=== PATIENT | male | born 1950 | race Caucasian/White ===

== ENCOUNTER → 2016-04-11 | Outpatient (REF) | payer MEDICARE ==
[2016-04-13 14:16] LABS: Lyme Disease IgG/IgM Antibodie <0.91 ISR (0.00-0.90); Lyme Disease IgM Ab Quantitati <0.80 index (0.00-0.79)
== END | disposition home or self-care (01) ==
LOC: M LAB REF 13:04
PROVIDERS: ATTEND Nurse Practitioner Family
DX: H53.143 Visual discomfort, bilateral (principal); W57.XXXS Bitten or stung by nonvenomous insect and other nonvenomous arthropods, sequela; Y92.9 Unspecified place or not applicable; Y93.9 Activity, unspecified; Y99.9 Unspecified external cause status

== ENCOUNTER → 2016-07-23 | Outpatient (CLI) | payer MEDICARE ==
[2016-07-23 16:16] LABS: MEAN CORPUSCULAR HEMOGLOBIN 33.8 pg (27.0-33.0); MEAN CORPUSCULAR HGB CONC 33.7 g/dl (32.0-36.5); MEAN CORPUSCULAR VOLUME 100.4 fl (80.0-96.0); PLATELET COUNT, AUTOMATED 205 k/mm3 (150-450); RED CELL DISTRIBUTION WIDTH 12.5 % (11.5-14.5); WHITE BLOOD COUNT 2.9 K/mm3 (4.0-10.0)
[2016-07-23 16:48] LABS: ALBUMIN 3.9 GM/DL (3.2-5.2); ALBUMIN/GLOBULIN RATIO 1.08 (1.00-1.93); ALKALINE PHOSPHATASE 82 U/L (45-117); ALT/SGPT 29 U/L (12-78); ANION GAP 4 MEQ/L (8-16); AST/SGOT 25 U/L (15-37); BILIRUBIN,TOTAL 0.5 MG/DL (0.2-1.0); BLOOD UREA NITROGEN 13 MG/DL (7-18); CALCIUM LEVEL 8.6 MG/DL (8.8-10.2); CARBON DIOXIDE LEVEL 30 MEQ/L (21-32); CHLORIDE LEVEL 107 MEQ/L (98-107); CREATININE FOR GFR 0.98 MG/DL (0.70-1.30); GLOMERULAR FILTRATION RATE > 60.0 (>49); GLUCOSE, FASTING 99 MG/DL (80-110); POTASSIUM SERUM 4.4 MEQ/L (3.5-5.1); SODIUM LEVEL 141 MEQ/L (136-145); TOTAL PROTEIN 7.5 GM/DL (6.4-8.2)
[2016-07-23 17:53] LABS: BANDS 1 % (< 11); EOSINOPHILS 2 % (0-5)
[2016-07-27 00:07] LABS: FREE KAPPA LIGHT CHAINS SERUM 166.81 mg/L (3.30-19.40); FREE LAMBDA LIGHT CHAINS SERUM 3.7 mg/L (5.71-26.30); KAPPA/LAMBDA RATIO SERUM 45.08 (0.26-1.65)
[2016-07-27 10:53] LABS: ALBUMIN 4.53 GM/DL (3.29-5.55); ALBUMIN % 60.4 % (55.8-66.1); GAMMA GLOBULIN % 19.2 % (11.1-18.8)
== END ==
LOC: M LAB 15:25
PROVIDERS: ATTEND Physician Assistant
DX: D47.2 Monoclonal gammopathy (principal)

== ENCOUNTER 2016-11-26 11:12 | Emergency (ER) | payer MEDICARE ==
[~2016-11-26] VITALS: Ht 180.3 cm; Wt 77.0 kg
[2016-11-26 14:29] LABS: BASO % 0.5 % (0.0-1.0); EOS % 1.1 % (0.0-3.0); LARGE UNSTAINED CELL # 0.1 K/mm3 (0.0-0.4); LARGE UNSTAINED CELL % 1.9 % (0.0-4.0); LYMPH # 0.9 K/mm3 (1.5-4.5); LYMPH % 22.4 % (24.0-44.0); MEAN CORPUSCULAR HEMOGLOBIN 34.1 pg (27.0-33.0); MEAN CORPUSCULAR HGB CONC 34.3 g/dl (32.0-36.5); MEAN CORPUSCULAR VOLUME 99.2 fl (80.0-96.0); MONO # 0.2 K/mm3 (0.0-0.8); MONO % 5.1 % (0.0-5.0); NEUTROPHILS # 2.6 K/mm3 (1.8-7.7); NEUTROPHILS % 68.9 % (36.0-66.0); PLATELET COUNT, AUTOMATED 221 k/mm3 (150-450); RED CELL DISTRIBUTION WIDTH 12.6 % (11.5-14.5); WHITE BLOOD COUNT 3.7 K/mm3 (4.0-10.0)
[2016-11-26 14:56] LABS: ALBUMIN 4.4 GM/DL (3.2-5.2); ALKALINE PHOSPHATASE 91 U/L (45-117); ALT/SGPT 26 U/L (12-78); ANION GAP 6 MEQ/L (8-16); AST/SGOT 20 U/L (15-37); BILIRUBIN,TOTAL 0.5 MG/DL (0.2-1.0); BLOOD UREA NITROGEN 16 MG/DL (7-18); CARBON DIOXIDE LEVEL 30 MEQ/L (21-32); CHLORIDE LEVEL 104 MEQ/L (98-107); CREATININE FOR GFR 1.04 MG/DL (0.70-1.30); GLOMERULAR FILTRATION RATE > 60.0 (>49); GLUCOSE, FASTING 108 MG/DL (80-110); POTASSIUM SERUM 4.1 MEQ/L (3.5-5.1); SODIUM LEVEL 140 MEQ/L (136-145); TOTAL PROTEIN 8.4 GM/DL (6.4-8.2)
[2016-11-26] MEDS ORDERED: ISOVUE-370 76% 100ML VIAL (Q9967) As Ordered ONE (15:01)
--- NOTE | 2016-11-26 15:30 | REP ---
Clinical: Abdominal pain with history of umbilical hernia. Technique: Axial contrast enhanced images from the lung bases to the pubic symphysis using 100 ml Isovue 370 intravenous contrast material with coronal and sagittal re-formations. Comparison: 10/20/2013. Findings: Lung bases demonstrate mild emphysematous changes. Visualized heart and pericardium are normal. Liver demonstrates stable subcentimeter hepatic cysts. Spleen, pancreas, gallbladder, bilateral adrenal glands and kidneys are normal. The enteric system is without obstruction or acute inflammatory process. Normal terminal ileum and appendix are identified in the right lower quadrant. Scattered colonic diverticula noted without acute diverticulitis. Moderate fecal stasis and constipation suggested. Pelvis demonstrates normal bladder and mildly prominent prostate gland measuring 4.5 cm maximal transverse diameter. 2 cm fat containing periumbilical hernia noted with mild fat stranding. No ascites. No free air. No intraperitoneal or retroperitoneal adenopathy. Abdominal aorta and vasculature without aneurysm or dissection. Surrounding musculoskeletal structures demonstrate age-related changes without focal osseous abnormality. Impression: 1. 2 cm fat containing periumbilical hernia with mild stranding should be correlated with physical examination. 2. Scattered diverticula without acute diverticulitis. 3. Few subcentimeter hepatic cysts. 4. Prominent prostate gland. 5. No further acute abdominopelvic pathology appreciated. Signed by Damien Goldberg MD 11/26/2016 03:22 P
[2016-11-26] MEDS ORDERED: STOO100C PO (15:54)
[2016-11-26] MEDS ORDERED: TYLE325T5 PO (15:56)
[2016-11-26] MEDS ORDERED: NAPR500T3 PO (15:56)
[2016-11-26 16:16] VITALS: BP 124/73
[2017-01-09] MEDS ORDERED: META48.54 PO (09:21)
[2017-01-09] MEDS ORDERED: CENTTAB PO (09:21)
[2017-01-09] MEDS ORDERED: TUMS500C PO (09:22)
== END 2016-11-26 16:17 | disposition home or self-care (01) ==
LOC: M ED 11:12
DX: K42.9 Umbilical hernia without obstruction or gangrene (principal); Z88.0 Allergy status to penicillin
CPT/HCPCS: 36415; 74177; 80053; 81001; 83690; 85025; 99283; Q9967

== ENCOUNTER 2017-01-18 05:43 | Day surgery (SDC) | payer MEDICARE ==
[~2017-01-18] VITALS: Ht 180.3 cm; Wt 75.7 kg
[~2017-01-18 05:43] MED LIST: CENTTAB PO; META48.54 PO; NAPR500T3 PO; STOO100C PO; TUMS500C PO; TYLE325T5 PO
[2017-01-18] MEDS ORDERED: LR 1,000 ML IV SCH ×2 (06:00→09:15)
[2017-01-18] MEDS ORDERED: LIDOCAINE 1% MDV 20ML VIAL SQ PRN (06:00)
[2017-01-18] MEDS ORDERED: dexameTHASONE 4 MG/ML 1ML VIAL (J1100) As Ordered ONE (07:18)
[2017-01-18] MEDS ORDERED: SUCCINYLCHOLINE 100 MG/5 ML SYRINGE (J0330) As Ordered ONE (07:18)
[2017-01-18] MEDS ORDERED: GLYCOPYRROLATE INJ 0.2 MG/ML 2 ML VIAL As Ordered ONE (07:18)
[2017-01-18] MEDS ORDERED: ROCURONIUM BROMIDE 50 MG/5 ML VIAL/SYRINGE As Ordered ONE (07:18)
[2017-01-18] MEDS ORDERED: ONDANSETRON 4MG/2ML VIAL (J2405) As Ordered ONE (07:18)
[2017-01-18] MEDS ORDERED: LIDOCAINE 2% INJ 100 MG/5 ML SDV (FOR ANES.) As Ordered ONE (07:18)
[2017-01-18] MEDS ORDERED: PROPOFOL 200 MG/20 ML VIAL As Ordered ONE (07:18)
[2017-01-18] MEDS ORDERED: NEOSTIGMINE 10 MG/10 ML VIAL (J2710) As Ordered ONE (07:18)
[2017-01-18] MEDS ORDERED: fentaNYL 100 MCG/2 ML INJECTION (J3010) As Ordered ONE (07:19)
[2017-01-18] MEDS ORDERED: BUPIVACAINE HCL 0.25% 30 ML VIAL As Ordered ONE (07:19)
[2017-01-18] MEDS ORDERED: MIDAZOLAM INJ 2 MG/2 ML VIAL (J2250) As Ordered ONE (07:19)
[2017-01-18] MEDS ORDERED: ePHEDrine SULFATE 25 MG/5 ML(5MG/ML) SYRINGE As Ordered ONE (07:45)
[2017-01-18] MEDS ORDERED: NORCO, ANEXSIA 5/325MG TABLET (HYDROcodone/ACETAMINOPHEN) PO PRN (09:15)
[2017-01-18] MEDS ORDERED: ACETAMINOPHEN TAB 650MG DOSE (2X325MG) PO PRN (09:15)
[2017-01-18] MEDS ORDERED: fentaNYL 100 MCG/2 ML INJECTION (J3010) IV PRN (09:15)
[2017-01-18] MEDS ORDERED: ONDANSETRON 4MG/2ML VIAL (J2405) IV PRN (09:15)
[2017-01-18 10:25] VITALS: BP 125/76
--- NOTE | 2017-01-21 19:59 | RO ---
DATE OF PROCEDURE: 01/18/2017 PREOPERATIVE DIAGNOSIS: Umbilical hernia. POSTOPERATIVE DIAGNOSIS: Umbilical hernia. PROCEDURE PERFORMED: Umbilical herniorrhaphy. SURGEON: Stef Ortiz MD ANESTHESIA: General. INDICATIONS FOR PROCEDURE: Patient is 66-year-old man who has noticed small bulge at the umbilicus. He is now for repair. OPERATIVE PROCEDURE: The patient was placed under general endotracheal anesthesia. The patient's abdomen was prepped and draped in a sterile fashion. An approximately 3-4 cm curved infraumbilical transverse incision was made. This was deepened into the subcutaneous tissues. The umbilical skin was elevated and elevated off of the umbilical hernia sac. The sac was then opened and transected at the skin. The hernia sac contained only a small amount of fat. This was freed where it was adherent in several small areas and then reduced into the abdomen. The hernia sac was excised at the level of the fascia. The fascia overall appeared to be somewhat thinned, but intact. The edges of the fascia were trimmed slightly where it was stretched at the edges of the hernia. The hernia appeared amenable to a primary closure. This was performed with interrupted simple sutures of #2-0 Ethibond closing the defect transversely. The umbilical skin was tacked down to the underlying fascia with a single #2-0 Ethibond. Hemostasis was ensured with electrocautery. Approximately 15 mL of 0.25% Marcaine were infiltrated about the wound. The subcutaneous tissues were closed with #3-0 Vicryl and skin edges with a running subcuticular #4-0 Vicryl. Steri-Strips and a light dressing were applied. The patient tolerated the procedure well without apparent complication. He was awakened in the operating room, extubated and moved to the recovery room in stable condition. YUNI
== END 2017-01-18 12:10 | disposition home or self-care (01) ==
LOC: M SDC 05:43
PROVIDERS: ATTEND Surgery
DX: K42.9 Umbilical hernia without obstruction or gangrene (principal); K21.9 Gastro-esophageal reflux disease without esophagitis; K58.9 Irritable bowel syndrome, unspecified; Z88.0 Allergy status to penicillin; Z87.891 Personal history of nicotine dependence; Z86.2 Personal history of diseases of the blood and blood-forming organs and certain disorders involving the immune mechanism
CPT/HCPCS: 49585; 88302; J1100; J2250; J2405; J2710; J3010

== ENCOUNTER → 2017-05-28 | Outpatient (CLI) | payer MEDICARE ==
[2017-05-28 18:34] LABS: FREE T4 0.76 NG/DL (0.76-1.46)
== END ==
LOC: M LAB 17:13
DX: E07.9 Disorder of thyroid, unspecified (principal)
CPT/HCPCS: 84443

== ENCOUNTER → 2017-09-05 | Outpatient (REF) | payer MEDICARE | LOC: M LAB REF 11:48 | DX: L72.0 Epidermal cyst (principal) | CPT/HCPCS: 88304 ==

== ENCOUNTER → 2017-10-11 | Outpatient (CLI) | payer MEDICARE ==
[2017-10-11 12:03] LABS: BASO % 0.6 % (0.0-1.0); EOS % 1.1 % (0.0-3.0); HEMATOCRIT 36.1 % (42.0-52.0); HEMOGLOBIN 12.3 g/dl (13.5-17.5); LYMPH # 1.1 10^3/uL (1.5-4.5); LYMPH % 29.2 % (24.0-44.0); MEAN CORPUSCULAR HEMOGLOBIN 33.7 pg (27.0-33.0); MEAN CORPUSCULAR HGB CONC 34.1 g/dl (32.0-36.5); MEAN CORPUSCULAR VOLUME 98.9 fl (80.0-96.0); MONO # 0.3 10^3/uL (0.0-0.8); MONO % 9.1 % (0.0-5.0); NEUTROPHILS # 2.2 10^3/uL (1.8-7.7); PLATELET COUNT, AUTOMATED 214 10^3/uL (150-450); RED BLOOD COUNT 3.65 10^6/uL (4.30-6.10); RED CELL DISTRIBUTION WIDTH 12.4 % (11.5-14.5); WHITE BLOOD COUNT 3.6 10^3/uL (4.0-10.0)
[2017-10-11 13:13] LABS: ALBUMIN 4.2 GM/DL (3.2-5.2); ALBUMIN/GLOBULIN RATIO 1.14 (1.00-1.93); ALKALINE PHOSPHATASE 86 U/L (45-117); ALT/SGPT 31 U/L (12-78); ANION GAP 5 MEQ/L (8-16); AST/SGOT 24 U/L (7-37); BILIRUBIN,TOTAL 0.5 MG/DL (0.2-1.0); BLOOD UREA NITROGEN 16 MG/DL (7-18); CARBON DIOXIDE LEVEL 28 MEQ/L (21-32); CHLORIDE LEVEL 107 MEQ/L (98-107); CREATININE FOR GFR 1.03 MG/DL (0.70-1.30); GLOMERULAR FILTRATION RATE > 60.0 (>49); GLUCOSE, FASTING 105 MG/DL (70-100); POTASSIUM SERUM 4.2 MEQ/L (3.5-5.1); SODIUM LEVEL 140 MEQ/L (136-145); TOTAL PROTEIN 7.9 GM/DL (6.4-8.2)
[2017-10-12 08:14] LABS: IMMUNOGLOBULIN G 1772 MG/DL (681-1648)
[2017-10-12 08:16] LABS: IMMUNOGLOBULIN M < 5.3 MG/DL (40-230)
[2017-10-13 00:06] LABS: FREE KAPPA LIGHT CHAINS SERUM 145.7 mg/L (3.3-19.4); FREE LAMBDA LIGHT CHAINS SERUM 3.2 mg/L (5.7-26.3); KAPPA/LAMBDA RATIO SERUM 45.53 (0.26-1.65)
[2017-10-15 11:58] LABS: ALBUMIN % 59.5 % (55.8-66.1); ALPHA-1-GLOBULIN % 3.4 % (2.9-4.9); ALPHA-2-GLOBULINS % 8.7 % (7.1-11.8); BETA-1-GLOBULINS % 5.7 % (4.7-7.2); BETA-2-GLOBULINS % 2.7 % (3.2-6.5)
[2017-10-15 11:59] LABS: ALPHA-1-GLOBULINS 0.27 GM/DL (0.17-0.41); ALPHA-2-GLOBULINS 0.69 GM/DL (0.42-0.99); BETA-1-GLOBULINS 0.45 GM/DL (0.28-0.60); BETA-2-GLOBULINS 0.21 GM/DL (0.19-0.55); GAMMA GLOBULINS 1.58 GM/DL (0.65-1.58)
[2017-10-15 14:44] LABS: IMMUNOTYPING SERUM IGG ABNORMAL (NORMAL); IMMUNOTYPING SERUM KAPPA ABNORMAL (NORMAL)
== END ==
LOC: M LAB 11:12
DX: D47.2 Monoclonal gammopathy (principal)
CPT/HCPCS: 84165

== ENCOUNTER → 2018-04-03 | Outpatient (REF) | payer MEDICARE ==
[~2018-04-03] MED LIST changes: +IBUP80TA PO; +LEVO25TA5 PO; +NAPR-885 PO; -NAPR500T3 PO
== END ==
LOC: M LAB REF 16:36
PROVIDERS: ATTEND Internal Medicine
DX: L03.90 Cellulitis, unspecified (principal)

== ENCOUNTER 2018-04-06 01:25 | Emergency (ER) | payer MEDICARE ==
[~2018-04-06] VITALS: Ht 180.3 cm; Wt 77.3 kg
[~2018-04-06 01:25] MED LIST changes: -IBUP80TA PO; -LEVO25TA5 PO
[2018-04-06] MEDS ORDERED: LEVO25TA5 PO (02:16)
[2018-04-06 03:06] LABS: BASO % 0.7 % (0.0-1.0); EOS # 0.1 10^3/uL (0.0-0.50); EOS % 2.2 % (0.0-3.0); HEMATOCRIT 35.7 % (42.0-52.0); LYMPH # 1.1 10^3/uL (1.5-4.5); LYMPH % 25.1 % (24.0-44.0); MEAN CORPUSCULAR HEMOGLOBIN 34.2 pg (27.0-33.0); MEAN CORPUSCULAR HGB CONC 33.6 g/dl (32.0-36.5); MEAN CORPUSCULAR VOLUME 101.7 fl (80.0-96.0); MONO # 0.5 10^3/uL (0.0-0.8); NEUTROPHILS # 2.8 10^3/uL (1.8-7.7); NEUTROPHILS % 60.8 % (36.0-66.0); PLATELET COUNT, AUTOMATED 224 10^3/uL (150-450); RED BLOOD COUNT 3.51 10^6/uL (4.30-6.10); WHITE BLOOD COUNT 4.6 10^3/uL (4.0-10.0)
[2018-04-06] MEDS ORDERED: IBUP80TA PO (04:03)
[2018-04-06] MEDS ORDERED: IBUPROFEN 800 MG TAB PO ONE (04:15)
[2018-04-06 04:20] VITALS: BP 113/62
--- NOTE | 2018-04-06 08:28 | REP ---
Right ankle: Four views. History: Pain and swelling. Findings: Achilles and plantar calcaneal spurring is seen. There is diffuse anterior and posterior soft tissue swelling about the ankle. There is swelling in the pre-Achilles fat although the anterior margin of the Achilles tendon appears intact and normal. Ankle mortise is intact. No fractures seen. Impression: Diffuse soft tissue swelling. No fracture noted. Electronically Signed by Miguelito Ruano MD 04/06/2018 08:19 A
== END 2018-04-06 04:23 | disposition home or self-care (01) ==
LOC: M ED 01:25
DX: I80.9 Phlebitis and thrombophlebitis of unspecified site (principal); Z79.899 Other long term (current) drug therapy; Z79.890 Hormone replacement therapy; Z88.0 Allergy status to penicillin

== ENCOUNTER → 2018-05-21 | Outpatient (REF) | payer MEDICARE ==
[~2018-05-21] MED LIST changes: +IBUP80TA PO; +LEVO25TA5 PO
== END ==
LOC: M LAB REF 12:38
PROVIDERS: ATTEND Internal Medicine
DX: R30.0 Dysuria (principal)

== ENCOUNTER 2018-11-22 16:49 | Emergency (ER) | payer MEDICARE ==
[~2018-11-22] VITALS: Ht 177.8 cm; Wt 77.3 kg
[~2018-11-22 16:49] MED LIST changes: +MM S100C PO; -STOO100C PO
--- NOTE | 2018-11-22 18:22 | REPVR ---
EXAM: US Duplex Left Lower Extremity Veins, Limited EXAM DATE/TIME: 11/22/2018 5:34 PM CLINICAL HISTORY: 68 years old, male; Pain; Leg, lower; Left; Additional info: Redness/swelling/pain TECHNIQUE: Imaging protocol: Real-time Duplex ultrasound of the Left Lower Extremity with 2-D rene scale, color Doppler flow and spectral waveform analysis with image documentation. Limited exam focused on the left lower extremity veins. COMPARISON: US Duplex, Ext,LOWER veins,unilat 05/20/2014 8:29 PM FINDINGS: Left deep veins: Unremarkable. The common femoral, femoral, proximal profunda femoral and popliteal veins are patent without thrombus. Normal Doppler waveforms. Normal compressibility and/or augmentation response. Left superficial veins: The left lesser saphenous vein demonstrates abnormal intraluminal echoes with apparent absence of flow with color Doppler interrogation, probable trace flow based on spectral Doppler. This may reflect a superficial thrombophlebitis given the clinical history. Soft tissues: Unremarkable. IMPRESSION: 1. No evidence of deep venous thrombosis in the left lower extremity. 2. The left lesser saphenous vein demonstrates nearly occlusive thrombus. Electronically signed by: Bernice Knox On 11/22/2018 18:22:08 PM
[2018-11-22] MEDS ORDERED: XARE10TA PO (19:25)
[2018-11-22] MEDS ORDERED: RIVAROXABAN 10 MG TAB (XARELTO) PO ONE (19:30)
[2018-11-22 19:48] VITALS: BP 130/66
== END 2018-11-22 20:24 | disposition home or self-care (01) ==
LOC: M ED 16:49
DX: I82.890 Acute embolism and thrombosis of other specified veins (principal); Z86.718 Personal history of other venous thrombosis and embolism; Z88.0 Allergy status to penicillin; Z88.2 Allergy status to sulfonamides; Z79.01 Long term (current) use of anticoagulants

== ENCOUNTER → 2018-12-11 | Outpatient (CLI) | payer MEDICARE ==
[~2018-12-11] MED LIST changes: +XARE10TA PO
--- NOTE | 2018-12-11 16:26 | REP ---
BILATERAL LOWER EXTREMITY DUPLEX DOPPLER VENOUS ULTRASOUND WITH EVALUATION FOR VENOUS REFLUX: Real-time compression and duplex Doppler interrogation of bilateral lower extremity deep venous systems is performed. Bilaterally, common femoral, superficial femoral and popliteal veins are fully compressible with transducer pressure and demonstrate normal spontaneous and phasic flow without evidence of deep venous thrombosis. Evaluation for venous reflux in the right lower extremity demonstrates no reflux in any of the deep veins. There is an anterior accessory greater saphenous vein which measures 4 mm. There is no reflux in the greater saphenous vein at the knee or above, that vessel 3 to 4 mm in diameter. However, there is reversal of flow in the greater saphenous vein below the level of the knee at rest and with Valsalva maneuver with flow from a collateral vessel in the calf. There is no reflux in the lesser saphenous vein. On the left, there is no reflux in any of the deep veins. There is a 4 mm anterior accessory greater saphenous vein. There is no reflux in any portion of the greater saphenous vein which measures 2 to 4 mm. Occlusive thrombus is seen in the lesser saphenous vein. Electronically Signed by Darrick Clifton MD 12/11/2018 05:54 P
== END ==
LOC: M RAD 12:35
PROVIDERS: ATTEND Surgery Vascular Surgery
DX: M79.605 Pain in left leg (principal); M79.604 Pain in right leg; I82.812 Embolism and thrombosis of superficial veins of left lower extremity

== ENCOUNTER → 2019-05-21 | Outpatient (CLI) | payer MEDICARE ==
[2019-05-21 14:55] LABS: BASO % 0.3 % (0.0-1.0); EOS % 0.8 % (0.0-3.0); HEMATOCRIT 37.5 % (42.0-52.0); HEMOGLOBIN 12.6 g/dl (13.5-17.5); LYMPH # 0.7 10^3/uL (1.5-5.0); LYMPH % 20.6 % (24.0-44.0); MEAN CORPUSCULAR HEMOGLOBIN 34.7 pg (27.0-33.0); MEAN CORPUSCULAR HGB CONC 33.6 g/dl (32.0-36.5); MEAN CORPUSCULAR VOLUME 103.3 fl (80.0-96.0); MONO # 0.2 10^3/uL (0.0-0.8); MONO % 6.8 % (0.0-5.0); NEUTROPHILS # 2.5 10^3/uL (1.5-8.5); NEUTROPHILS % 71.2 % (36.0-66.0); PLATELET COUNT, AUTOMATED 207 10^3/uL (150-450); RED BLOOD COUNT 3.63 10^6/uL (4.30-6.10); WHITE BLOOD COUNT 3.5 10^3/uL (4.0-10.0)
[2019-05-21 19:08] LABS: ALBUMIN 4.1 GM/DL (3.2-5.2); ALT/SGPT 30 U/L (12-78); BILIRUBIN,TOTAL 0.5 MG/DL (0.2-1.0); BLOOD UREA NITROGEN 16 MG/DL (7-18); CALCIUM LEVEL 8.9 MG/DL (8.8-10.2); CARBON DIOXIDE LEVEL 31 MEQ/L (21-32); CHLORIDE LEVEL 109 MEQ/L (98-107); CREATININE FOR GFR 1.02 MG/DL (0.70-1.30); GLOMERULAR FILTRATION RATE > 60.0 (>42); GLUCOSE, FASTING 101 MG/DL (70-100); IMMUNOGLOBULIN G 1900 MG/DL (681-1648); POTASSIUM SERUM 4.2 MEQ/L (3.5-5.1); SODIUM LEVEL 141 MEQ/L (136-145); TOTAL PROTEIN 7.7 GM/DL (6.4-8.2)
== END ==
LOC: M LAB 14:10
PROVIDERS: ATTEND Physician Assistant
DX: D47.2 Monoclonal gammopathy (principal)

== ENCOUNTER → 2019-06-05 | Outpatient (CLI) | payer MEDICARE ==
[2019-06-05 16:43] LABS: BASO % 0.6 % (0.0-1.0); HEMATOCRIT 36.1 % (42.0-52.0); LYMPH % 30.5 % (24.0-44.0); MEAN CORPUSCULAR HEMOGLOBIN 34.9 pg (27.0-33.0); MEAN CORPUSCULAR HGB CONC 33.2 g/dl (32.0-36.5); MEAN CORPUSCULAR VOLUME 104.9 fl (80.0-96.0); MONO # 0.3 10^3/uL (0.0-0.8); MONO % 9.8 % (0.0-5.0); NEUTROPHILS # 1.8 10^3/uL (1.5-8.5); NEUTROPHILS % 57.8 % (36.0-66.0); PLATELET COUNT, AUTOMATED 199 10^3/uL (150-450); RED BLOOD COUNT 3.44 10^6/uL (4.30-6.10); WHITE BLOOD COUNT 3.2 10^3/uL (4.0-10.0)
[2019-06-05 18:48] LABS: ALBUMIN 3.9 GM/DL (3.2-5.2); ALT/SGPT 26 U/L (12-78); BILIRUBIN,TOTAL 0.4 MG/DL (0.2-1.0); BLOOD UREA NITROGEN 25 MG/DL (7-18); CALCIUM LEVEL 8.5 MG/DL (8.8-10.2); CARBON DIOXIDE LEVEL 30 MEQ/L (21-32); CHLORIDE LEVEL 109 MEQ/L (98-107); CREATININE FOR GFR 1.07 MG/DL (0.70-1.30); GLOMERULAR FILTRATION RATE > 60.0 (>42); GLUCOSE, FASTING 96 MG/DL (70-100); POTASSIUM SERUM 4.5 MEQ/L (3.5-5.1); SODIUM LEVEL 140 MEQ/L (136-145); TOTAL PROTEIN 7.7 GM/DL (6.4-8.2)
== END ==
LOC: M LAB 15:53
PROVIDERS: ATTEND Physician Assistant
DX: D47.2 Monoclonal gammopathy (principal)

== ENCOUNTER → 2019-10-09 | Outpatient (CLI) | payer MEDICARE ==
[~2019-10-09] MED LIST changes: +CENT1TAB PO
--- NOTE | 2019-10-10 07:59 | REP ---
REASON FOR EXAM: Clinical evidence of inguinal hernia. Ultrasonographic evaluation of the right groin and right inguinal regions were obtained. There are no cystic or solid masses. There is no ultrasonographic evidence of a hernia. A negative ultrasound examination does not rule out an inguinal hernia since they can spontaneously reduce. Electronically Signed by Anthony Lozano DO 10/10/2019 09:12 A
== END ==
LOC: M RAD 15:06
PROVIDERS: ATTEND Surgery
DX: R10.31 Right lower quadrant pain (principal); K40.90 Unilateral inguinal hernia, without obstruction or gangrene, not specified as recurrent

== ENCOUNTER → 2020-02-04 | Outpatient (CLI) | payer MEDICARE ==
[~2020-02-04] MED LIST changes: +GASTROGRAFIN SOLUTION 30ML (Q9963) As Ordered ONE; +ISOVUE-370 76% 100ML VIAL As Ordered ONE
--- NOTE | 2020-02-04 14:59 | REP ---
INDICATION: RIGHT LOWER QUAD PAIN. COMPARISON: CT 11/26/2016, limited pelvic ultrasound 10/09/2019 TECHNIQUE: Oral Gastrografin mixture of per our protocol and bolus 100 mL Isovue 370 scanning through the pelvis with coronal and sagittal reconstructions. FINDINGS: CT pelvis: Appendix is seen and normal oral contrast in the cecum without wall thickening or mass. Terminal ileum and distal ileum in this in the pelvis were unremarkable. The distal left colon sigmoid and rectum show no evidence of acute inflammatory process or mass. Bladder shows only partial filling and slight thickening of its wall greater than on the 11/26/2016 exam no discrete mass, dilated distal ureter or ureteral/bladder stone. No pelvic free fluid. No midline pelvic hernia. The right inguinal canal shows asymmetrically slightly greater omental fat than the left without bowel herniation. No adenopathy or solid mass. Lung window review of all CT slices shows no perforation or free air. There are degenerative changes with disc space narrowing at L5-S1 minimally at L4-5 and without spondylolysis or spondylolisthesis. Sacrum, SI joints pelvis and hips show minor degenerative change without destructive lesion or fracture IMPRESSION: 1. Asymmetric slight fullness with omental fat of the right compared to left inguinal canal without solid mass or bowel herniation. No adenopathy in the inguinal canal, elsewhere in the groin or pelvis. 2. The colon, small bowel loops, appendix and cecum were unremarkable. No ascites or free air in the abdomen and pelvis. 3. A bladder with slight wall thickening and no bladder mass, stone, dilated ureter or distal ureteral stone. Bones without acute finding. <Electronically signed by Zane Mejia > 02/04/20 1362
== END ==
LOC: M RAD 11:48
PROVIDERS: ATTEND Surgery
DX: R10.31 Right lower quadrant pain (principal)
CPT/HCPCS: 72193; Q9963; Q9967

== ENCOUNTER → 2020-02-04 | Outpatient (REF) | payer MEDICARE ==
[~2020-02-04] MED LIST changes: -GASTROGRAFIN SOLUTION 30ML (Q9963) As Ordered ONE; -ISOVUE-370 76% 100ML VIAL As Ordered ONE
[2020-02-04 17:14] LABS: PERCENT SATURATION 14.4 % (19.7-50.0)
== END ==
LOC: M LAB REF 16:12
PROVIDERS: ATTEND Internal Medicine
DX: D50.9 Iron deficiency anemia, unspecified (principal); R53.83 Other fatigue

== ENCOUNTER → 2020-03-22 | Outpatient (CLI) | payer MEDICARE ==
[~2020-03-22] MED LIST changes: +E-Z-GAS II EFFERVESCENT PACKET (SODIUM BICARB./CITRIC ACID/SIMETHICONE) As Ordered ONE; +E-Z-HD 98% w/w 340GM SUSP BTL As Ordered ONE; +E-Z-PAQUE 96% w/w SUSP 176GM BTL As Ordered ONE
--- NOTE | 2020-03-22 09:10 | REP ---
INDICATION: EPIGASTRIC PAIN COMPARISON: 11/10/2014 TECHNIQUE: PA and lateral. FINDINGS: The mediastinum and cardiac silhouette are normal. The lung magallanes are clear and without acute consolidation, effusion, or pneumothorax. The skeletal structures are intact and normal. IMPRESSION: No acute cardiopulmonary process. <Electronically signed by Damien Goldberg > 03/22/20 0995
--- NOTE | 2020-03-22 16:31 | REP ---
INDICATION: EPIGASTRIC PAIN. COMPARISON: None. TECHNIQUE: The procedure was performed under the direct supervision of Dr. Ruano. The images were reviewed with Dr. Ruano. Liquid barium and gas producing crystals were given in the erect position as well as liquid barium in the prone oblique position in order to perform a double contrast upper GI examination. 3 minutes of fluoro time was utilized for this procedure. 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 The intestinal gas pattern is non-specific. During the oral and pharyngeal stages of deglutition there is laryngeal penetration. Esophageal transport is prompt and efficient and there is no esophagitis, stricture or mucosal ring. There is a sliding-type hiatal hernia. There is gastroesophageal reflux demonstrated to the level of the thoracic inlet.. Within the stomach there are multiple sub cm polyps identified. There is residual ingested material. The stomach is otherwise unremarkable. The duodenal yates are normally outlined. The mucosal folds are smooth and regular. There is no duodenitis pancreatitis peptic ulcer disease or neoplasm. The visualized portion of the proximal small bowel appears normal in course and caliber. IMPRESSION: 1. There is laryngeal penetration. 2. There is a sliding-type hiatal hernia. There is gastroesophageal reflux demonstrated to the level of the thoracic inlet. 3. There are multiple sub cm polyps within the stomach. <Electronically signed by Markel Rhodes > 03/22/20 1623 <Electronically signed by Jose David Ruano > 03/22/20 1628
== END ==
LOC: M RAD 08:32
PROVIDERS: ATTEND Internal Medicine
DX: R10.13 Epigastric pain (principal); K31.7 Polyp of stomach and duodenum; K44.9 Diaphragmatic hernia without obstruction or gangrene; K21.9 Gastro-esophageal reflux disease without esophagitis

== ENCOUNTER → 2020-03-31 | Outpatient (CLI) | payer MEDICARE ==
[~2020-03-31] MED LIST changes: -E-Z-GAS II EFFERVESCENT PACKET (SODIUM BICARB./CITRIC ACID/SIMETHICONE) As Ordered ONE; -E-Z-HD 98% w/w 340GM SUSP BTL As Ordered ONE; -E-Z-PAQUE 96% w/w SUSP 176GM BTL As Ordered ONE; +GAVICHW5 PO
== END ==
LOC: M LABSMTC 10:50
PROVIDERS: ATTEND Anesthesiology
DX: Z01.812 Encounter for preprocedural laboratory examination (principal); Z20.822 Contact with and (suspected) exposure to COVID-19

== ENCOUNTER 2020-04-05 10:47 | Day surgery (SDC) | payer MEDICARE ==
[~2020-04-05] VITALS: Ht 180.3 cm; Wt 78.2 kg
[~2020-04-05 10:47] MED LIST changes: +LIDOCAINE 2% 100MG/5ML SDV (FOR ANES.) As Ordered ONE; +NS 1,000 ML IV ONE; +propofoL 200 MG/20 ML VIAL As Ordered ONE
--- OUTSIDE RECORDS SUMMARY | 2020-04-05 10:53 | CCD ---
Author Author Oziel Teague MD [facility] Organization Oziel Teague MD [facility] Address [address] [facility] [address] [place] [address] Phone Care Team Providers Care Solution Architect Name Role Phone Vangie Antony DO PP [phone] Zahida VALDES, Oziel ODONNELL Unavailable [phone] Juve VALDES, Luda Momin Unavailable [phone] Reason for Referral No Reason for Referral Recorded Problems Includes: Active, inactive, and resolved Problems All Visits Onset Date - Time Resolved Date - Time Provider Co ndition Status Corneal Dystrophy Endothelial Fuchs' Bilateral Eyes 03/03/2020 - 12:00AM Oziel Teague MD, FACS Active Posterior Vitreous Detachment Left Eye 04/14/2019 - 12:00AM Oziel Crocker MD, FACS Active Cataract Senile Cortical Bilateral 03/05/2019 - 12:00AM Oziel Teague MD, FACS Active Cataract Senile Cortical 02/21/2017 - 12:00AM Oziel Teague MD, FACS Inactive Keratoconjunctivitis Sicca (Non-sjogren's) 02/11/2017 - 12:00AM Oziel Teague MD, FACS Inactive Cataract Senile Nuclear 02/11/2017 - 12:00AM [facility] DO Active Squamous blepharitis right lower eyelid 02/11/2017 - 12:00AM Franky Aguiar DO Active Squamous blepharitis left upper eyelid 02/11/2017 - 12:00AM Franky Aguiar DO Active Squamous blepharitis left lower eyelid 02/11/2017 - 12:00AM Franky Aguiar DO Active Blepharitis Squamous 02/11/2017 - 12:00AM Franky swanson DO Active Note: right upper eyelid Dry Eye Syndrome 02/11/2017 - 12:00AM Franky Benoit n DO Inactive Conjunctivitis Acute Atopic 04/23/2016 - 12:00AM Oziel Teague MD, FACS Inactive Cataract Senile Cortical Right 02/01/2016 - 12:00AM Oziel Teague MD, FACS Inactive Vitreous Disorders Degeneration 03/30/2015 - 12:00AM Oziel Teague MD, FACS Active Presbyopia 02/03/2014 - 12:00AM Oziel Teague MD, FACS Active Note: Unchanged Conjunctivitis Acute Left Eye 07/23/2013 - 12:00AM Unknown - Unk nown Oziel Teague MD, FACS Resolved Note: Unchanged Corneal Foreign Body - Right Eye 07/23/2013 - 12:00AM Unknown - Unknown Oziel Teague MD, FACS Resolved Note: Unchanged Dry Eye Syndrome Both Eyes 07/23/2013 - 12:00AM Oziel Teague MD, FACS Active Note: Unchanged Vitreous Floaters Both Eyes 07/23/2013 - 12:00AM Oziel Teague MD, FACS Inactive Note: Unchanged Plan of Treatment Future Appointments Date Time Location Provider 1 Year Follow-Up 03/06/2021 3:00PM Oziel Teague MD [facility] Oziel Teague MD, FACS Assessments Includes: Assessments for all patient encounters Findings Encounter Date Bilateral cortical senile cataract 1 Year Follow-Up [facility] Oziel Teague MD, FACS 03/03/2020 Dry eye syndrome of both eyes 1 Year Follow-Up with Miguel Teague MD, FACS 03/03/2020 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 1 Year Follow-Up with Oziel Teague MD, FACS 03/03/2020 Nuclear senile cataract 1 Year Follow-Up with Oziel Watson MD, FACS 03/03/2020 Squamous blepharitis right upper eyelid , right lower eyelid, left upper eyelid, left lower eyelid 1 Year Follow-Up with Oziel Teague MD, FACS 12/2019 Posterior vitreous detachment in the left eye Dilated Fundal Exam with Oziel Teague MD, FACS 08/13/2019 Posterior vitreous detachment in the left eye TRIAGE N ON URGENT with Oziel Teague MD, FACS 04/14/2019 Bilateral cortical senile cataract 1 Year Follow-Up [facility] Oziel Teague MD, FACS 03/05/2019 Dry eye syndrome of both eyes 1 Year Follow-Up with Miguel Teague MD, FACS 03/05/2019 Fuchs' endothelial corneal dystrophy 1 Year Follow-Up with Oziel Teague MD, FACS 03/05/2019 Nuclear senile cataract 1 Year Follow-Up with Oziel Watson MD, FACS 03/05/2019 Dry eye syndrome of both eyes 1 Year Follow-Up with Miguel Teague MD, FACS 02/27/2018 Fuchs' endothelial corneal dystrophy 1 Year Follow-Up with Oziel Teague MD, FACS 02/27/2018 Right cortical senile cataract 1 Year Follow-Up with Stephany Teague MD, FACS 02/27/2018 Cortical senile cataract 1 Year Follow-Up with Oziel Taylor MD, FACS 02/21/2017 Dry eye syndrome 1 Year Follow-Up with Oziel llamas MD, FACS 02/21/2017 Fuchs' endothelial corneal dystrophy 1 Year Follow-Up with Oziel Teague MD, FACS 02/21/2017 Acute atopic conjunctivitis 1 Month Follow-Up with Franky Llamas [facility] DO 05/18/2016 Dry eye syndrome of both eyes 1 Month Follow-Up with Franky Aguiar DO 05/18/2016 Fuchs' endothelial corneal dystrophy 1 Month Follow-Up with Franky Aguiar DO 05/18/2016 Squamous blepharitis right upper eyelid , right lower eyelid, left upper eyelid and left lower eyelid 1 Month Follow-Up with Franky Aguiar DO 05/18/2016 Acute atopic conjunctivitis TRIAGE NON URGENT with Oziel Teague MD, FACS 04/23/2016 Dry eye syndrome of both eyes TRIAGE NON URGENT with Stephany Teague MD, FACS 04/23/2016 Arcus senilis was observed TRIAGE NON URGENT with Franky brasher DO 04/11/2016 Dry eye syndrome TRIAGE NON URGENT with Franky Aguiar DO 04/11/2016 Keratoconjunctivitis sicca TRIAGE NON URGENT with Franky brasher DO 04/11/2016 Nuclear senile cataract TRIAGE NON URGENT with Franky de jesus DO 04/11/2016 Right cortical senile cataract TRIAGE NON URGENT with Annie Aguiar DO 04/11/2016 Squamous blepharitis right upper eyelid , right lower eyelid, left upper eyelid and left lower eyelid TRIAGE NON URGENT with Franky Aguiar DO 04/11/2016 Vitreous degeneration TRIAGE NON URGENT with Franky Redding in DO 04/11/2016 Dry eye syndrome of both eyes 1 Year Follow-Up with Miguel Teague MD, FACS 02/01/2016 Endothelial corneal dystrophy of both eyes 1 Year Fol low-Up with Oziel Teague MD, FACS 02/01/2016 Right cortical senile cataract 1 Year Follow-Up with Stephany Teague MD, FACS 02/01/2016 Vitreous degeneration 1 Year Follow-Up with Oziel gomez MD, FACS 02/01/2016 Dry eye syndrome of both eyes 1 Year Follow-Up with Miguel Teague MD, FACS 01/27/2015 Endothelial corneal dystrophy of both eyes 1 Year Fol low-Up with Oziel Teague MD, FACS 01/27/2015 Vitreous degeneration 1 Year Follow-Up with Oziel gomez MD, FACS 01/27/2015 Dry eye syndrome of both eyes 6 Month Follow-Up with Stephany Teague MD, FACS 02/03/2014 Fuchs' endothelial corneal dystrophy both eyes 6 Sandro h Follow-Up with Oziel Teague MD, FACS 02/03/2014 Presbyopia 6 Month Follow-Up with Oziel acosta MD, FACS 02/03/2014 Vitreous floaters in both eyes 6 Month Follow-Up with Oziel Teague MD, FACS 02/03/2014 Acute conjunctivitis of the left eye TRIAGE NON URGENT with Oziel Teague MD, FACS 07/23/2013 Corneal foreign body in the right eye TRIAGE NON URGEN T with Oziel Teague MD, FACS 07/23/2013 Dry eye syndrome of both eyes TRIAGE NON URGENT with Stephany Teague MD, FACS 07/23/2013 Fuchs' endothelial corneal dystrophy both eyes TRIAGE NON URGENT with Oziel Teague MD, FACS 07/23/2013 Myopia both eyes TRIAGE NON URGENT with Oziel acosta MD, FACS 07/23/2013 Regular astigmatism both eyes TRIAGE NON URGENT with Oziel Teague MD, FACS 07/23/2013 Vitreous floaters in both eyes TRIAGE NON URGENT with Oziel Teague MD, FACS 07/23/2013 Instructions Instructions not supported for this document typeNo Instructions Recorded Medical Equipment - Implanted Devices Includes: Current and historical DevicesNo Medical Equipment Recorded Medications Includes: Current and historical Medications Current Medications (continue as prescribed) Soothe XP Ophthalmic Solution 02/27/2018 Provider: Diagnosis: Refresh Optive Advanced 0.5-1-0.5% Ophthalmic Solution 02/27 Provider: Diagnosis: Antacid Medicine OR TABS 07/23/2013 Provider: Diagnosis: before bed Past Medications on file Doxycycline Hyclate 20MG Oral Tablet 05/18/2016 - 06/17/2016 Provider: Franky Aguiar DO Diagnosis: Acute atopic conjunc tivitis, right eye twice a day Lotemax 0.5% Ophthalmic Suspension 04/18/2016 - 05/18/2016 P rovider: Oziel Teague MD, FACS Diagnosis: Dry eye syndrome of bilateral lacrimal glands One drop twice a day in both eyes for 1 week Refresh Optive 0.5-0.9% OP SOLN 04/22/2014 - 02/27/2018 Prov ider: Diagnosis: Artificial Tears 0.4% OP SOLN 04/22/2014 - 02/27/2018 Provid er: Diagnosis: Erythromycin 5 MG/GM OP OINT 07/23/2013 - 02/03/2014 Provide r: Diagnosis: 2 times daily in each eye Medications Administered Includes: Administered Medications in patient's chartNo Administered Medications Recorded Vital Signs Includes: Vital Signs from 03/03/2019 through 03/03/2020No Vital Signs Recorded For Specified Dates Results Includes: Results from 03/03/2019 through 03/03/2020No Results Recorded For Specified Dates History of Present Illness History of Present Illness not supported for this document typeNo History of Present Illness Recorded Social History Description Last Updated No consumption of alcohol 03/03/2020 No tobacco use 03/03/2020 Not using drugs 03/03/2020 Smoking status : Never smoker 03/03/2020 Not a current smoker 04/14/2019 Procedures and Surgical History Includes: Procedures from 03/03/2019 through 03/03/2020 Procedures Code Diagnosis Performing Provider Service Location Service Date Intermediate Eye Exam Established Patient [id number] Endothelial corneal dystrophy, bilateral, Age-related nuclear cataract, bilateral, Dry eye syndrome of bilateral lacrimal glands, Cortical age-related cataract, bilateral Oziel Teague MD, FACS 03/03/2020 Intermediate Eye Exam Established Patient [id number] Vitreo us degeneration, left eye Oziel Teague MD, BELLE Teague MD [facility] 08/13/2019 Intermediate Eye Exam Established Patient [id number] Vitreo us degeneration, left eye Oziel Teague MD, BELLE Teague MD [facility] 04/14/2019 Intermediate Eye Exam Established Patient [id number] Cortical age-related cataract, bilateral, Age-related nuclear cataract, bilateral, Endothelial corneal dystrophy, Dry eye syndrome of bilateral lacrimal glands Oziel Teague MD, BELLE Teague MD [facility] 03/05/2019 Surgical History Last Updated Surgical / procedural history : Bilatera l Inguinal Hernia Repair 2003, Umbilical Hernia Repair 12/201608/13/2019 Medical History Includes: Medical History in patient's chart Description Last Updated Reported medical history 03/30/2015 Currently wearing eyeglasses 04/22/2014 No recent change in medical history 02/03/2014 History of arthritis 07/23/2013 Family History Includes: Family History in patient's chart Description Last Updated Paternal history of arthritis 04/14/2019 Sororal history of heart disease 04/14/2019 Sororal history of thyroid disorder 04/14/2019 Maternal history of cataract 01/27/2015 Maternal history of stroke/cerebrovascular accident Paternal history of hypertension 01/27/2015 Sororal history of arthritis 01/27/2015 Maternal history of arthritis 04/22/2014 Review of Systems Review of Systems not supported for this document typeNo Review of Systems Recorded Mental Status Mental Status not supported for this document type Description Oriented to time, place, and person Functional Status Functional Status not supported for this document typeNo Functional Status Recorded Physical Exam Physical Exam not supported for this document typeNo Physical Exam Recorded Immunizations Includes: Immunizations in patient's chartNo Immunizations Recorded Allergies Includes: Active, inactive, and resolved Allergies Substance Type Reaction Onset Date - Time Resolved Date - Ti me Status Penicillins Allergy 07/23/2013 - 12:00AM Act daniel Encounters Includes: Encounters from 03/03/2019 through 03/03/2020 Encounter Provider Location Date Check-In Time Check-Out Time D iagnosis 1 Year Follow-Up Oziel Teague MD, BELLE Hammond [facility] 03/03/2020 3:05PM 3:48PM Cataract Senile Nucl ear, Dry Eye Syndrome Both Eyes, Cataract Senile Cortical Bilateral, Corneal Dystrophy Endothelial Fuchs' Bilateral Eyes, Blepharitis Squamous Dilated Fundal Exam Oziel Teague MD, FACS Oziel llamas MD [facility] 08/13/2019 3:32PM 3:57PM Posterior Vitreous D etachment Left Eye TRIAGE NON URGENT Oziel Teague MD, FACS Oziel Teague MD [facility] 04/14/2019 3:04PM 3:52PM Posterior Vitreous D etachment Left Eye 1 Year Follow-Up zOiel Teague MD, BELLE Hammond [facility] 03/05/2019 2:32PM 3:10PM Cataract Senile Nucl ear, Dry Eye Syndrome Both Eyes, Corneal Dystrophy Endothelial Fuchs', Cataract Senile Cortical Bilateral Insurance Includes: Active Insurance Policies Plan Name Member ID Group # Subscriber Relationship Effective Da damian 1 - MEDICARE BLUE [id number] Darnell Pardo Self 12/23/2013 - Unknown Advance Directives Includes: Current Advance DirectivesNo Advance Directives Recorded Health Concerns Includes: Active Health ConcernsNo Active Health Concerns Recorded Goals Includes: Active GoalsNo Active Goals Recorded Interventions Includes: Interventions for active GoalsNo Interventions Recorded Evaluations & Outcomes Includes: Evaluations & Outcomes for active GoalsNo Outcomes Recorded
--- OUTSIDE RECORDS SUMMARY | 2020-04-05 10:53 | CCD | Continuity of Care Document ---
Author Author Darnell MOE M.D. Organization Unknown Address [address] [facility], [address] [place] [address] Phone [phone] Care Team Providers Care Business Continuity Consultant Name Role Phone Vangie Antony D.O. 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 Monoclonal gammopathy (clinical) Mingo Barry MD Onset: 06/02/2018 Multiple myeloma Mingo Barry MD Onset: 06/02/2018 Monoclonal gammopathy (clinical) Mingo Barry MD Onset: 02/09/2019 Social History Type Date Description Comments Sex Unknown ETOH Use Denies alcohol use Tobacco Use Start: Unknown Denies Smoking Recreational Drug Use Denies Drug Use Smoking Status Reviewed: 12/01/18 Denies Smoking Allergies, Adverse Reactions, Alerts Active Allergies Reaction Severity Comments Date Penicillin SWELLING 10/07/2009 Bactrim Rash/Itching 06/02/2018 Medications Active Medications SIG Qnty Indications Ordering Provide r Date Tums 500mg Chewtabs 2 PO bid Unknown Centrum Silver Tablets 1 PO Daily Unknown Metamucil Fiber 51.7% Packet 2 tablespons once a day Unknown Ferrous Gluconate 324(38Fe) mg Tab lets Take One Tablet By Mouth Every Day Unknown Immunizations Description No Information Available Vital Signs Date Vital Result Comment 03/02/2020 9:09am BP Systolic 134 mmHg BP Diastolic 82 mmHg Height 71 inches 5'11" Weight 171.38 lb BMI (Body Mass Index) 23.9 kg/m2 [place] Body Weight 172 lb Weight 77.736 kg BSA (Body Surface Area) 1.97 m2 02/10/2020 11:46am BP Systolic 114 mmHg BP Diastolic 70 mmHg Height 71 inches 5'11" Weight 168.12 lb BMI (Body Mass Index) 23.4 kg/m2 [place] Body Weight 172 lb Weight 76.261 kg BSA (Body Surface Area) 1.96 m2 Results Description No Information Available Procedures Description No Information Available Medical Devices Description No Information Available Encounters Type Date Location Provider Dx Diagnosis Office Visit 10/21/2019 11:30a [facility] Stef lawler M.D. R10.31 Right lower quadrant pain Assessments Date Code Description Provider 10/21/2019 R10.31 Right lower quadrant pain Stef Moe M.D. Plan of Treatment 10/21/2019 - Stef Moe M.D.* R10.31 Right lower quadrant pain* Comments:* Patient was seen 08/02 for right lower quadrant pain. He expressed concerns about possible recurrent hernia. No hernia identified on exam. Prior bilateral inguinal hernia repair done in 2003. Describes a fullness with pain in the right lower quadrant and groin area with any strenuous activity. Ultrasound has not been particularly helpful. He reports his symptoms persist. I did not repeat his exam today. I will order a CT scan and see if we can get approval from his insurer now that the ultrasound was done. I will see him back after the CT scan. Functional Status Description No Information Available Mental Status Description No Information Available Referrals Refer to Reason for Referral Status Appt Date Stef Moe M.D. ANEMIA Scheduled 02/10/2020 [facility] [address] [place], [place] [id number] [phone]
--- OUTSIDE RECORDS SUMMARY | 2020-04-05 10:53 | CCD | Continuity of Care Document ---
Author Author Darnell MOE M.D. Organization Unknown Address [address] [facility], [address] [place] [address] Phone [phone] Care Team Providers Care Manager Unix Name Role Phone Vangie Antony D.O. AUTM [phone] Keshia Alford MD AUTM [phone] Problems Active Problems Provider Date Disorder of [...] Available Vital Signs Date Vital Result Comment 02/10/2020 11:46am BP Systolic 114 mmHg BP Diastolic 70 mmHg Height 71 inches 5'11" Weight 168.12 lb BMI (Body Mass Index) 23.4 kg/m2 [place] Body Weight 172 lb Weight 76.261 kg 10/21/2019 4:00pm BP Systolic 120 mmHg BP Diastolic 74 mmHg Height 71 inches 5'11" Weight 169.00 lb BMI (Body Mass Index) 23.6 kg/m2 [place] Body Weight 172 lb Weight 76.658 kg Results Description No Information Available Procedures Description No Information Available Medical Devices Description No Information Available Encounters Type Date Location Provider Dx Diagnosis Office Visit 10/21/2019 11:30a [facility] Stef lawler M.D. R10.31 [...] Date Stef Moe M.D. ANEMIA Scheduled 02/10/2020 [facility] [address] [place] [address] [phone]
--- OUTSIDE RECORDS SUMMARY | 2020-04-05 10:53 | CCD | Continuity of Care Document ---
Author Organization Unknown Address Unknown Phone Unavailable Care Team Providers Care Interior Surface Insulation Worker Name Role Phone Vangie Antony DO AUTM Unavailable Stef Moe MD AUTM [phone] Oziel Teague MD AUTM [phone] Problems Active Problems Provider Date Monoclonal paraproteinemia Jet Selby D.O. Onset: 07/11/2012 Social History Type Date Description Comments Sex Unknown ETOH Use Never used alcohol Tobacco Use Start: Unknown Patient has never smoked Allergies, Adverse Reactions, Alerts Active Allergies Reaction Severity Comments Date Penicillin swelling, cannot move joints pt stated 16/0211/16/2010 Doxycycline HIVES 11/21/2010 Inactive Allergies Keflex skin tight, joint pain Moderate cont to take med w /o further issues 04/01/2018 NKDA 01/31/2010 Medications Active Medications SIG Qnty Indications Ordering Provide r Date Ferrous Gluconate 324(38Fe) mg Tab lets 1 by mouth every day 30tabs Vangie Antony DO 02/05/2020 Tums 500mg Chewtabs as needed Vangie Antony DO 10/21/2018 Calcium 600/Vitamin D3 [id number] Tablets 1 by mouth every day Vangie Antony DO 08/21 Centrum Adults Tablets 1 by mouth every day GABBY Grey 04/11/2016 Immunizations CPT Code Status Date Vaccine Lot # [id number] Refused 12/30/2018 Influenza Vaccin e Quadrivalent Preser/Antibiotic Free Im Use Vital Signs Date Vital Result Comment 02/04/2020 3:01pm BP Systolic 120 mmHg BP Diastolic 68 mmHg Heart Rate 75 /min Height 71 inches 5'11" Weight 169.00 lb O2 % BldC Oximetry 100 % RM Air BMI (Body Mass Index) 23.6 kg/m2 04/28/2019 3:12pm BP Systolic 120 mmHg BP Diastolic 70 mmHg Heart Rate 73 /min Height 71 inches 5'11" Weight 171.00 lb O2 % BldC Oximetry 99 % RM Air BMI (Body Mass Index) 23.8 kg/m2 Results Test Acquired Date Facility Test Result H/L Range Note CBC With Differential 02/24/[address] [address] [phone] White Blood Count 3.3 10 Low 4.0-10.0 Red Blood Count 3.59 10 Low 4.30-6.10 Hemoglobin 12.0 g/dL Low 13.5-17.5 Hematocrit 37.0 % Low 42.0-52.0 Mean Corpuscular Volume 103.1 fl High 80.0-96.0 Mean Corpuscular Hemoglobin 33.4 pg High 27.0-33.0 Mean Corpuscular HGB Conc 32.4 g/dL Normal 32.0-36.5 Red Cell Distribution Width 12.6 % Normal 11.5-14.5 Platelet Count, Automated 212 10 Normal 150-450 Neutrophils % 57.1 % Normal 36.0-66.0 Lymph % 30.9 % Normal 24.0-44.0 [place] % 10.2 % High 0.0-5.0 Eos % 1.2 % Normal 0.0-3.0 Baso % 0.6 % Normal 0.0-1.0 Immature Granulocyte % 0.0 % Normal 0-3.0 Nucleated Red Blood Cell % 0.0 % Normal 0-0 Neutrophils # 1.9 10 Normal 1.5-8.5 Lymph # 1.0 10 Low 1.5-5.0 [place] # 0.3 10 Normal 0.0-0.8 Eos # 0.0 10 Normal 0.0-0.5 Baso # 0.0 10 Normal 0.0-0.2 Comprehensive Metabolic Profil 02/24/[address] [address] [phone] Glucose, Fasting 109 mg/dL High 70-100 Blood Urea Nitrogen 14 mg/dL Normal 7-18 Creatinine For GFR 1.07 mg/dL Normal 0.70-1.30 Glomerular Filtration Rate > 60.0 Normal >42 1 Sodium Level 139 mEq/L Normal 136-145 Potassium Serum 4.0 mEq/L Normal 3.5-5.1 Chloride Level 107 mEq/L Normal 98-107 Carbon Dioxide Level 30 mEq/L Normal 21-32 Anion Gap 2 mEq/L Low 8-16 Calcium Level 9.0 mg/dL Normal 8.8-10.2 Ast/Sgot 27 U/L Normal 7-37 Alt/SGPT 24 U/L Normal 12-78 Alkaline Phosphatase 91 U/L Normal 45-117 Bilirubin,Total 0.6 mg/dL Normal 0.2-1.0 Total Protein 8.1 GM/DL Normal 6.4-8.2 Albumin 4.0 GM/DL Normal 3.2-5.2 Albumin/Globulin Ratio 1.0 Normal Total Iron Binding Capacit 02/04/[address] [address] [phone] Iron (Fe) 61 g/dL Low 65-175 Total Iron Binding Capacity 424 g/dL Normal 250-450 Percent Saturation 14.4 % Low 19.7-50.0 Laboratory test finding 02/04/[address] [address] [phone] Ferritin 81 NG/ML Normal 26-388 Vitamin B12 Level 655 pg/mL Normal 247-911 2 Lipid Profile 02/04/2020 [facility] Project Associate: Dr Santo Mejía [place] [id number] [phone] Cholesterol 155 mg/dL 131 - 200 Triglycerides 37 mg/dL 30 - 150 HDL Cholesterol 64 mg/dL High 35 - 60 LDL (Calculated) 84 CALC 50 - 159 Laboratory test finding 02/04/2020 [facility] Project Associate: [address] [place] [place] [address] [phone] Thyroid Stimulating Hormone 3.94 uIU/mL High 0.3 6 - 3.74 T4 Free 0.76 ng/dL 0.76 - 1.46 CBC With Differential 11/25/[address] [address] [phone] White Blood Count 3.5 10 Low 4.0-10.0 Red Blood Count 3.32 10 Low 4.30-6.10 Hemoglobin 11.6 g/dL Low 13.5-17.5 Hematocrit 35.0 % Low 42.0-52.0 Mean Corpuscular Volume 105.4 fl High 80.0-96.0 Mean Corpuscular Hemoglobin 34.9 pg High 27.0-33.0 Mean Corpuscular HGB Conc 33.1 g/dL Normal 32.0-36.5 Red Cell Distribution Width 12.6 % Normal 11.5-14.5 Platelet Count, Automated 200 10 Normal 150-450 Neutrophils % 68.4 % High 36.0-66.0 Lymph % 19.9 % Low 24.0-44.0 [place] % 9.7 % High 0.0-5.0 Eos % 1.1 % Normal 0.0-3.0 Baso % 0.6 % Normal 0.0-1.0 Immature Granulocyte % 0.3 % Normal 0-3.0 Nucleated Red Blood Cell % 0.0 % Normal 0-0 Neutrophils # 2.4 10 Normal 1.5-8.5 Lymph # 0.7 10 Low 1.5-5.0 [place] # 0.3 10 Normal 0.0-0.8 Eos # 0.0 10 Normal 0.0-0.5 Baso # 0.0 10 Normal 0.0-0.2 Comprehensive Metabolic Profil 11/25/2019 [place] [id number] [phone] Glucose, Fasting 85 mg/dL Normal 70-100 Blood Urea Nitrogen 19 mg/dL High 7-18 Creatinine For GFR 0.98 mg/dL Normal 0.70-1.30 Glomerular Filtration Rate > 60.0 Normal >42 3 Sodium Level 140 mEq/L Normal 136-145 Potassium Serum 4.1 mEq/L Normal 3.5-5.1 Chloride Level 109 mEq/L High 98-107 Carbon Dioxide Level 29 mEq/L Normal 21-32 Anion Gap 2 mEq/L Low 8-16 Calcium Level 8.7 mg/dL Low 8.8-10.2 Ast/Sgot 22 U/L Normal 7-37 Alt/SGPT 25 U/L Normal 12-78 Alkaline Phosphatase 81 U/L Normal 45-117 Bilirubin,Total 0.4 mg/dL Normal 0.2-1.0 Total Protein 7.6 GM/DL Normal 6.4-8.2 Albumin 3.6 GM/DL Normal 3.2-5.2 Albumin/Globulin Ratio 0.9 Normal Laboratory test finding 11/25/[address] [address] [phone] LDH Lactate Dehydrogenase 218 U/L Normal 87-241 Free [place] & Lambda LT Chains 11/25/[address] [address] [phone] Free [place] Light Chains Serum 163.6 mg/L High 3. 3-19.4 Free Lambda Light Chains Serum 3.4 mg/L Low 5.7-26.3 [place]/Lambda Ratio Serum 48.12 High 0.26-1.65 4 Immunotyping (Immunofixation) Serum (If 11/25/[address] [address] [phone] Immunotyping Serum Igg ABNORMAL High Normal Immunotyping Serum [place] ABNORMAL High Normal It Serum Interpretation SEE COMMENT Normal 5 Its Pathologist Review REV'D BY Vanessa FAJARDO <SEE NOTE> Normal 6 Serum Protein Electrophoresis 11/25/[address] [address] [phone] Albumin % 58.6 % Normal 55.8-66.1 Zkvxz-4-Wadmyctq % 3.7 % Normal 2.9-4.9 Qbkvb-9-Jvvmqwxix % 9.1 % Normal 7.1-11.8 Mztz-2-Bmtlhnuyt % 5.7 % Normal 4.7-7.2 Xvgt-8-Mkiwtbkat % 2.7 % Low 3.2-6.5 Gamma Globulin % 20.2 % High 11.1-18.8 Albumin 4.28 GM/DL Normal 3.29-5.55 Yxiru-0-Upvutowux 0.27 GM/DL Normal 0.17-0.41 Pqkva-4-Bpqopkygv 0.66 GM/DL Normal 0.42-0.99 Xttz-9-Dmnxwnepo 0.42 GM/DL Normal 0.28-0.60 Biuw-5-Hkklpmzet 0.20 GM/DL Normal 0.19-0.55 Gamma Globulins 1.47 GM/DL Normal 0.65-1.58 Total Protein 7.3 GM/DL Normal 6.4-8.2 Spep Interpretation SEE COMMENT Normal 7 Spep Pathologist Review REV'D BY Vanessa FAJARDO <SEE NOTE> Normal 8 1 Units are mL/min/1.73 m2 Chronic Kidney Disease Staging per NKF: Stage I & II GFR >=60 Normal to Mildly Decreased Stage III GFR 30-59 Moderately Decreased Stage IV GFR 15-29 Severely Decreased Stage V GFR <15 Very Little GFR Left ESRD GFR <15 on SCALE INSTALLER 2 VITAMIN B12 NORMAL RANGE NORMAL 247 - 911 PG/ML INDETERMINATE 211 - 246 PG/ML DEFICIENT LESS THAN 211 PG/ML 3 Units are mL/min/1.73 m2 Chronic Kidney Disease Staging per NKF: Stage I & II GFR >=60 Normal to Mildly Decreased Stage III GFR 30-59 Moderately Decreased Stage IV GFR 15-29 Severely Decreased Stage V GFR <15 Very Little GFR Left ESRD GFR <15 on SCALE INSTALLER 4 Performed at: RN - [facility] [address] [id number] Project Associate: Pema Winters MD, Phone: [phone] 5 MONOCLONAL IGG KAPPA 6 REV'D BY Vanessa LEAL 7 M-SPIKE NOTED IN LATE GAMMA REGION. CONCENTRATION = 1.31 GM/DL 8 REV'D BY Vanessa LEAL Procedures Date Code Description Status 11/06/2012 [id number] Diabetic Foot Exam Completed 09/24/2012 [id number] Diabetic Foot Exam Completed 10/27/2001 [id number] Colonoscopy Completed Medical Devices Description No Information Available Encounters Type Date Location Provider Dx Diagnosis Office Visit 02/04/2020 2:45p [facility] Vangie Antony ,DO R53.83 Other fatigue D64.9 Anemia, unspecified D47.2 Monoclonal gammopathy F41.9 Anxiety disorder, unspecifie d R23.1 Pallor Z13.220 Encounter for screening for lipoid disorders Assessments Date Code Description Provider 02/04/2020 R53.83 Other fatigue Vangie Antony,DO 02/04/2020 D64.9 Anemia, unspecified Vangie Antony, DO 02/04/2020 D47.2 Monoclonal gammopathy Vangie rivera,DO 02/04/2020 F41.9 Anxiety disorder, unspecified [place] trac[place] Antony,DO 02/04/2020 R23.1 Pallor Vangie Antony,DO 02/04/2020 Z13.220 Encounter for screening for lipo id disorders Vangie Antony DO Plan of Treatment Future Appointment(s):* 05/10/2020 2:15 pm - Vangie Antony DO at [facility] 02/04/2020 - Vangie Antony DO* R53.83 Other fatigue * D64.9 Anemia, unspecified * D47.2 Monoclonal gammopathy * F41.9 Anxiety disorder, unspecified * R23.1 Pallor * Z13.220 Encounter for screening for lipoid disorders Functional Status Description No Information Available Mental Status Description No Information Available Referrals Refer to Reason for Referral Status Appt Date Stef Moe MD CONSULT WITH DR MOE FOR ENDOSCOPY DX: IRON DEFICIENCY ANEMIA Patient Notified 02/15/2020 [facility] [address] [facility] [address] [facility], [address] [place] [address] [phone]
--- OUTSIDE RECORDS SUMMARY | 2020-04-05 10:54 | CCD | Continuity of Care Document ---
Author Author Darnell HINSON Organization Unknown Address [address] [facility] [address] [place] [address] Phone [phone] Care Team Providers Care Gore Maker Name Role Phone Vangie Hinson DO AUTM Unavailable Stef Ortiz MD AUTM [phone] Oziel Teague MD AUTM [phone] Problems Active Problems Provider Date Monoclonal paraproteinemia [...] Ordering Provide r Date Tums 500mg Chewtabs as needed Vangie Hinson DO 10/21/2018 Calcium 600/Vitamin D3 [id number] Tablets 1 by mouth every day Vangie Hinson DO 08/21 Centrum Adults Tablets 1 by mouth every day GABBY Grey 04/11/2016 Immunizations CPT Code Status Date Vaccine Lot # [id number] Refused 12/30/2018 Influenza Vaccin e Quadrivalent Preser/Antibiotic [...] Date Facility Test Result H/L Range Note Laboratory test finding 02/04/2020 [place] [address] [phone] Ferritin <pending> Vitamin B12 Level <pending> Lipid Profile 02/04/2020 [facility] [employer]: [place] [place] [address] [phone] Cholesterol 155 mg/dL 131 - 200 Triglycerides 37 mg/dL 30 - 150 HDL Cholesterol 64 mg/dL High 35 - 60 LDL (Calculated) 84 CALC 50 - 159 Laboratory test finding 02/04/2020 [facility] [employer]: Dr Santo Mej[address] [place] [id number] [phone] Thyroid Stimulating Hormone 3.94 uIU/mL High 0.3 6 - 3.74 T4 Free 0.76 ng/dL 0.76 - 1.46 CBC With Differential 11/25/2019 [place] [id number] [phone] White Blood Count 3.5 10 Low 4.0-10.0 [...] 36.0-66.0 Lymph % 19.9 % Low 24.0-44.0 [place] % 9.7 % High 0.0-5.0 Eos % 1.1 % Normal 0.0-3.0 Baso % 0.6 % Normal 0.0-1.0 Immature Granulocyte % 0.3 % Normal 0-3.0 Nucleated Red Blood Cell % 0.0 % Normal 0-0 Neutrophils # 2.4 10 Normal 1.5-8.5 Lymph # 0.7 10 Low 1.5-5.0 [place] # 0.3 10 Normal 0.0-0.8 Eos # 0.0 10 Normal 0.0-0.5 Baso # 0.0 10 Normal 0.0-0.2 Comprehensive Metabolic Profil 11/25/[address] [address] [phone] Glucose, Fasting 85 mg/dL Normal 70-100 Blood Urea Nitrogen 19 mg/dL High 7-18 Creatinine For GFR 0.98 mg/dL Normal 0.70-1.30 Glomerular Filtration Rate > 60.0 Normal >42 1 Sodium Level 140 mEq/L Normal 136-145 Potassium [...] Ratio 0.9 Normal Laboratory test finding 11/25/2019 [facility] [address] [place] [address] [phone] LDH Lactate Dehydrogenase 218 U/L Normal 87-241 Free [place] & Lambda LT Chains 11/25/[address] [address] [phone] Free [place] Light Chains Serum 163.6 mg/L High 3. 3-19.4 Free Lambda Light Chains Serum 3.4 mg/L Low 5.7-26.3 [place]/Lambda Ratio Serum 48.12 High 0.26-1.65 2 Immunotyping (Immunofixation) Serum (If 11/25/[address] [address] [phone] Immunotyping Serum Igg ABNORMAL High Normal Immunotyping Serum [place] ABNORMAL High Normal It Serum Interpretation SEE COMMENT Normal 3 Its Pathologist Review REV'D BY Vanessa FAJARDO <SEE NOTE> Normal 4 Serum Protein Electrophoresis 11/25/[address] [address] [phone] Albumin % 58.6 % Normal 55.8-66.1 Abtfz-4-Lbjxxsvo % 3.7 % Normal 2.9-4.9 Ebgye-0-Iyqabblvc % 9.1 % Normal 7.1-11.8 Rflq-8-Mypvnedjv % 5.7 % Normal 4.7-7.2 Bxex-5-Ahxdkmoxx % 2.7 % Low 3.2-6.5 Gamma Globulin % 20.2 % High 11.1-18.8 Albumin 4.28 GM/DL Normal 3.29-5.55 Sjwhe-5-Trwdlbxam 0.27 GM/DL Normal 0.17-0.41 Mplse-3-Skfcmiczd 0.66 GM/DL Normal 0.42-0.99 Mmyf-0-Dzvmlgqpa 0.42 GM/DL Normal 0.28-0.60 Mckm-3-Maqmaejqj 0.20 GM/DL Normal 0.19-0.55 Gamma Globulins 1.47 GM/DL Normal 0.65-1.58 Total Protein 7.3 GM/DL Normal 6.4-8.2 Spep Interpretation SEE COMMENT Normal 5 Spep Pathologist Review REV'D BY Vanessa FAJARDO <SEE NOTE> Normal 6 1 Units are mL/min/1.73 m2 Chronic Kidney Disease Staging per NKF: Stage I & II GFR >=60 Normal to Mildly Decreased Stage III GFR 30-59 Moderately Decreased Stage IV GFR 15-29 Severely Decreased Stage V GFR <15 Very Little GFR Left ESRD GFR <15 on DEPOSIT REFUND CLERK 2 Performed at: RN - [facility] [address] [id number] [employer]: Pema Winters MD, Phone: [phone] 3 MONOCLONAL IGG KAPPA 4 REV'D BY Vanessa LEAL 5 M-SPIKE NOTED IN LATE GAMMA REGION. CONCENTRATION = 1.31 GM/DL 6 REV'D BY Vanessa LEAL Procedures Date Code Description Status 11/06/2012 [id number] Diabetic Foot Exam Completed 09/24/2012 [id number] Diabetic Foot Exam Completed 10/27/2001 [id number] Colonoscopy Completed Medical Devices Description No Information Available Encounters Description No Information Available Assessments Date Code Description Provider 02/04/2020 R53.83 Other fatigue Vangie Hinson, 02/04/2020 D64.9 Anemia, unspecified Vangie Hinson DO 02/04/2020 D47.2 Monoclonal gammopathy Vangie rivera,DO 02/04/2020 F41.9 Anxiety disorder, unspecified La tracie Hinson, 02/04/2020 R23.1 Pallor Vangie Hinson DO Plan of Treatment Future Appointment(s):* 05/10/2020 2:15 pm - Vangie Hinson DO at [facility] 02/04/2020 - Vangie Hinson DO* R53.83 Other fatigue * D64.9 Anemia, unspecified * D47.2 Monoclonal gammopathy * F41.9 Anxiety disorder, unspecified * R23.1 Pallor Functional Status Description No Information Available Mental Status Description No Information Available Referrals Description No Information Available
--- OUTSIDE RECORDS SUMMARY | 2020-04-05 10:54 | CCD | Continuity of Care Document ---
Author Author Darnell HINSON Organization Unknown Address [address] [facility] [address] [place] [address] Phone [phone] Care Team Providers Care Noodle Press Operator Name Role Phone Vangie Hinson DO AUTM Unavailable Stef Moe MD AUTM [phone] Oziel Teague MD AUTM [phone] Problems Active Problems Provider Date Monoclonal paraproteinemia [...] 1 by mouth every day 30tabs Vangie Hinson DO 02/05/2020 Tums 500mg Chewtabs as needed Vangie Hinson DO 10/21/2018 Calcium 600/Vitamin D3 [id number]-[id number] Tablets 1 by mouth every day Vangie Hinson DO 08/21 Centrum Adults Tablets 1 by mouth every day GABBY Grey 04/11/2016 Immunizations CPT Code Status Date Vaccine Lot # [id number] Refused 12/30/2018 Influenza Vaccin e Quadrivalent Preser/Antibiotic [...] Date Facility Test Result H/L Range Note Total Iron Binding Capacit 02/04/[address] [address] [phone] Iron (Fe) 61 g/dL Low 65-175 Total Iron Binding Capacity 424 g/dL Normal 250-450 Percent Saturation 14.4 % Low 19.7-50.0 Laboratory test finding 02/04/[address] [address] [phone] Ferritin 81 NG/ML Normal 26-388 Vitamin B12 Level 655 pg/mL Normal 247-911 1 Lipid Profile 02/04/2020 [facility] Botanical Technical Officer: Dr Santo Mejía [place] [id number] [phone] Cholesterol 155 mg/dL 131 - 200 Triglycerides 37 mg/dL 30 - 150 HDL Cholesterol 64 mg/dL High 35 - 60 LDL (Calculated) 84 CALC 50 - 159 Laboratory test finding 02/04/2020 [facility] Botanical Technical Officer: Dr [address] [place] [id number] [phone] Thyroid Stimulating Hormone 3.94 uIU/mL High 0.3 6 - 3.74 T4 Free 0.76 ng/dL 0.76 - 1.46 CBC With Differential 11/25/[address] [address] [phone] White Blood Count 3.5 10 Low 4.0-10.0 [...] 36.0-66.0 Lymph % 19.9 % Low 24.0-44.0 [place] % 9.7 % High 0.0-5.0 Eos % 1.1 % Normal 0.0-3.0 Baso % 0.6 % Normal 0.0-1.0 Immature Granulocyte % 0.3 % Normal 0-3.0 Nucleated Red Blood Cell % 0.0 % Normal 0-0 Neutrophils # 2.4 10 Normal 1.5-8.5 Lymph # 0.7 10 Low 1.5-5.0 [place] # 0.3 10 Normal 0.0-0.8 Eos # 0.0 10 Normal 0.0-0.5 Baso # 0.0 10 Normal 0.0-0.2 Comprehensive Metabolic Profil 11/25/[address] [address] [phone] Glucose, Fasting 85 mg/dL Normal 70-100 Blood Urea Nitrogen 19 mg/dL High 7-18 Creatinine For GFR 0.98 mg/dL Normal 0.70-1.30 Glomerular Filtration Rate > 60.0 Normal >42 2 Sodium Level 140 mEq/L Normal 136-145 Potassium [...] Ratio 0.9 Normal Laboratory test finding 11/25/[address] [address] [phone] LDH Lactate Dehydrogenase 218 U/L Normal 87-241 Free [place] & Lambda LT Chains 11/25/[address] [address] [phone] Free [place] Light Chains Serum 163.6 mg/L High 3. 3-19.4 Free Lambda Light Chains Serum 3.4 mg/L Low 5.7-26.3 [place]/Lambda Ratio Serum 48.12 High 0.26-1.65 3 Immunotyping (Immunofixation) Serum (If 11/25/[address] [address] [phone] Immunotyping Serum Igg ABNORMAL High Normal Immunotyping Serum [place]une ABNORMAL High Normal It Serum Interpretation SEE COMMENT Normal 4 Its Pathologist Review REV'D BY Vanessa FAJARDO <SEE NOTE> Normal 5 Serum Protein Electrophoresis 11/25/[address] [address] [phone] Albumin % 58.6 % Normal 55.8-66.1 Bjerr-3-Fralwzqk % 3.7 % Normal 2.9-4.9 Xabkk-8-Zriwmvvav % 9.1 % Normal 7.1-11.8 Mfza-8-Wtizzrzgc % 5.7 % Normal 4.7-7.2 Kpuv-6-Ywtkvsirs % 2.7 % Low 3.2-6.5 Gamma Globulin % 20.2 % High 11.1-18.8 Albumin 4.28 GM/DL Normal 3.29-5.55 Pnqmt-1-Loyovjgwh 0.27 GM/DL Normal 0.17-0.41 Demnn-5-Iyhcecjhf 0.66 GM/DL Normal 0.42-0.99 Tepn-4-Uoafqjiew 0.42 GM/DL Normal 0.28-0.60 Qvhg-7-Kaeqybutv 0.20 GM/DL Normal 0.19-0.55 Gamma Globulins 1.47 GM/DL Normal 0.65-1.58 Total Protein 7.3 GM/DL Normal 6.4-8.2 Spep Interpretation SEE COMMENT Normal 6 Spep Pathologist Review REV'D BY Vanessa FAJARDO <SEE NOTE> Normal 7 1 VITAMIN B12 NORMAL RANGE NORMAL 247 - 911 PG/ML INDETERMINATE 211 - 246 PG/ML DEFICIENT LESS THAN 211 PG/ML 2 Units are mL/min/1.73 m2 Chronic Kidney Disease Staging per NKF: Stage I & II GFR >=60 Normal to Mildly Decreased Stage III GFR 30-59 Moderately Decreased Stage IV GFR 15-29 Severely Decreased Stage V GFR <15 Very Little GFR Left ESRD GFR <15 on TRANSFER CLERK 3 Performed at: RN - [facility] [address] [id number] Botanical Technical Officer: Pema Winters MD, Phone: [phone] 4 MONOCLONAL IGG KAPPA 5 REV'D BY Vanessa LEAL 6 M-SPIKE NOTED IN LATE GAMMA REGION. CONCENTRATION = 1.31 GM/DL 7 REV'D BY Vanessa LEAL Procedures Date Code Description Status 11/06/2012 [id number] Diabetic Foot Exam Completed 09/24/2012 [id number] Diabetic Foot Exam Completed 10/27/2001 [id number] Colonoscopy Completed Medical Devices Description No Information Available Encounters Type Date Location Provider Dx Diagnosis Office Visit 02/04/2020 2:45p [facility] Vangie Hinson DO R53.83 Other fatigue D64.9 Anemia, unspecified D47.2 Monoclonal gammopathy F41.9 Anxiety disorder, unspecifie d R23.1 Pallor Z13.220 Encounter for screening for lipoid disorders Assessments Date Code Description Provider 02/04/2020 R53.83 Other fatigue Vangie Hinson, 02/04/2020 D64.9 Anemia, unspecified Vangie Hinson, 02/04/2020 D47.2 Monoclonal gammopathy Vangie rivera,DO 02/04/2020 F41.9 Anxiety disorder, unspecified [place] Hinson,DO 02/04/2020 R23.1 Pallor Vangie Hinson, 02/04/2020 Z13.220 Encounter for screening for lipo id disorders Vangie Hinson DO Plan of Treatment Future Appointment(s):* 05/10/2020 2:15 pm - Vangie Hinson DO at [facility] 02/04/2020 - Vangie Hinson DO* [...] MOE FOR ENDOSCOPY DX: IRON DEFICIENCY ANEMIA [facility] [address], [address] [place] [address] [phone]
--- OUTSIDE RECORDS SUMMARY | 2020-04-05 10:54 | CCD | Continuity of Care Document ---
Author Author Darnell HINSON Organization Unknown Address [address] [facility] [address] [place] [address] Phone [phone] Care Team Providers Care Field Laborer Name Role Phone Vangie Hinson DO AUTM Unavailable Stef Ortiz MD AUTM [phone] Oziel Teague MD AUTM [phone] Problems Active Problems Provider Date Monoclonal paraproteinemia [...] Vangie Hinson DO 10/21/2018 Calcium 600/Vitamin D3 330-144in-Drjv Tablets 1 by mouth every day Vangie Hinson DO 08/21 Centrum Adults Tablets 1 by mouth every day GABBY Grey 04/11/2016 Immunizations CPT Code Status Date Vaccine Lot # [id number] Refused 12/30/2018 Influenza Vaccin e Quadrivalent Preser/Antibiotic [...] H/L Range Note Laboratory test finding 02/04/2020 [place] [address] [phone] Ferritin <pending> Vitamin B12 Level <pending> Lipid Profile 02/04/2020 [facility] Brim Rounder: [place] [place] [address] [phone] Cholesterol 155 mg/dL 131 - 200 Triglycerides 37 mg/dL 30 - 150 HDL Cholesterol 64 mg/dL High 35 - 60 LDL (Calculated) 84 CALC 50 - 159 Laboratory test finding 02/04/2020 [facility] Brim Rounder: Dr S[address] [place] [id number] [phone] Thyroid Stimulating Hormone 3.94 uIU/mL High 0.3 6 - 3.74 T4 Free 0.76 ng/dL 0.76 - 1.46 CBC With Differential 11/25/2019 [place] [id number] [phone] White Blood Count 3.5 10 Low 4.0-10.0 [...] 36.0-66.0 Lymph % 19.9 % Low 24.0-44.0 [place] % 9.7 % High 0.0-5.0 Eos % 1.1 % Normal 0.0-3.0 Baso % 0.6 % Normal 0.0-1.0 Immature Granulocyte % 0.3 % Normal 0-3.0 Nucleated Red Blood Cell % 0.0 % Normal 0-0 Neutrophils # 2.4 10 Normal 1.5-8.5 Lymph # 0.7 10 Low 1.5-5.0 [place] # 0.3 10 Normal 0.0-0.8 Eos # 0.0 10 Normal 0.0-0.5 Baso # 0.0 10 Normal 0.0-0.2 Comprehensive Metabolic Profil 11/25/[address] [address] [phone] Glucose, Fasting 85 mg/dL Normal 70-100 Blood [...] Ratio 0.9 Normal Laboratory test finding 11/25/2019 [facility] [address] [place] [address] [phone] LDH Lactate Dehydrogenase 218 U/L Normal 87-241 Free [place] & Lambda LT Chains 11/25/[address] [address] [phone] Free [place] Light Chains Serum 163.6 mg/L High 3. 3-19.4 Free Lambda Light Chains Serum 3.4 mg/L Low 5.7-26.3 [place]/Lambda Ratio Serum 48.12 High 0.26-1.65 2 Immunotyping (Immunofixation) Serum (If 11/25/[address] [address] [phone] Immunotyping Serum Igg ABNORMAL High Normal Immunotyping Serum [place] ABNORMAL High Normal It Serum Interpretation SEE COMMENT Normal 3 Its Pathologist Review REV'D BY Vanessa FAJARDO <SEE NOTE> Normal 4 Serum Protein Electrophoresis 11/25/[address] [address] [phone] Albumin % 58.6 % Normal 55.8-66.1 Aquym-9-Wohkameq % 3.7 % Normal 2.9-4.9 Lkdgl-1-Mmkpfkzoz % 9.1 % Normal 7.1-11.8 Iysn-2-Uhtdmpaiv % 5.7 % Normal 4.7-7.2 Nynv-6-Rxtijvaqy % 2.7 % Low 3.2-6.5 Gamma Globulin % 20.2 % High 11.1-18.8 Albumin 4.28 GM/DL Normal 3.29-5.55 Awmlp-8-Nbeqiyucc 0.27 GM/DL Normal 0.17-0.41 Dsffn-1-Zambkucad 0.66 GM/DL Normal 0.42-0.99 Joic-0-Qyguhamnk 0.42 GM/DL Normal 0.28-0.60 Aqxv-4-Fkeycbnxr 0.20 GM/DL Normal 0.19-0.55 Gamma Globulins 1.47 [...] Little GFR Left ESRD GFR <15 on PARANORMAL INVESTIGATOR 2 Performed at: RN - [facility] [address] [id number] Brim Rounder: Pema Winters MD, Phone: [phone] 3 MONOCLONAL IGG KAPPA 4 REV'D BY Vanessa LEAL 5 M-SPIKE NOTED IN LATE GAMMA REGION. CONCENTRATION = 1.31 GM/DL 6 REV'D BY Vanessa LEAL Procedures Date Code Description Status 11/06/2012 [id number] Diabetic Foot Exam Completed 09/24/2012 [id number] Diabetic Foot Exam Completed 10/27/2001 [id number] Colonoscopy Completed Medical Devices Description No Information [...] 2:15 pm - Vangie Hinson DO at [facility] 02/04/2020 - Vangie Hinson DO* R53.83 Other fatigue * D64.9 Anemia, unspecified * D47.2 Monoclonal gammopathy * F41.9 Anxiety disorder, unspecified * R23.1 Pallor Functional Status Description No Information Available Mental Status Description No Information Available Referrals Description No Information Available
--- OUTSIDE RECORDS SUMMARY | 2020-04-05 10:54 | CCD ---
Author Author [facility] Organization [facility] Address Unknown Phone Unavailable Care Team Providers Care Price Changer Name Role Phone Arpan, Vangie DO Unavailable Unavailable Arpan, Vangie DO Unavailable Unavailable Arpan, Vangie DO Unavailable Unavailable Arpan, Vangie DO Unavailable Unavailable Arpan, Vangie DO Unavailable Unavailable Arpan, Vangie DO Unavailable Unavailable Arpan, Vangie DO Unavailable Unavailable Arpan, Vangie DO Unavailable Unavailable Arpan, Vangie DO Unavailable Unavailable Arpan, Vangie DO Unavailable Unavailable Arpan, Vangie DO Unavailable Unavailable Arpan, Vangie DO Unavailable Unavailable Arpan, Vangie DO Unavailable Unavailable Arpan, Vangie DO Unavailable Unavailable Arpan, Vangie DO Unavailable Unavailable Arpan, Vangie DO Unavailable Unavailable Arpan, Vangie DO Unavailable Unavailable Arpan, Vangie DO Unavailable Unavailable Arpan, Vangie DO Unavailable Unavailable Arpan, Vangie DO Unavailable Unavailable Arpan, Vangie DO Unavailable Unavailable Arpan, Vangie DO Unavailable Unavailable Arpan, Vangie DO Unavailable Unavailable Arpan, Vangie DO Unavailable Unavailable Arpan, Vangie DO Unavailable Unavailable Arpan, Vangie DO Unavailable Unavailable Arpan, Vangie DO Unavailable Unavailable Arpan, Vangie DO Unavailable Unavailable Arpan, Vangie DO Unavailable Unavailable Arpan, Vangie DO Unavailable Unavailable Arpan, Vangie DO Unavailable Unavailable Arpan, Vangie DO Unavailable Unavailable Arpan, Vangie DO Unavailable Unavailable Arpan, Vangie DO Unavailable Unavailable Arpan, Vangie DO Unavailable Unavailable Arpan, Vangie DO Unavailable Unavailable Arpan, Vangie DO Unavailable Unavailable Arpan, Vangie DO Unavailable Unavailable Arpan, Vangie DO Unavailable Unavailable Arpan, Vangie DO Unavailable Unavailable Arpan, Vangie DO Unavailable Unavailable Arpan, Vangie DO Unavailable Unavailable Arpan, Vangie DO Unavailable Unavailable Arpan, Vangie DO Unavailable Unavailable Arpan, Vangie DO Unavailable Unavailable Arpan, Vangie DO Unavailable Unavailable Arpan, Vangie DO Unavailable Unavailable Arpan, Vangie DO Unavailable Unavailable Arpan, Vangie DO Unavailable Unavailable Arpan, Vangie DO Unavailable Unavailable Arpan, Vangie DO Unavailable Unavailable Arpan, Vangie DO Unavailable Unavailable Arpan, Vangie DO Unavailable Unavailable Arpan, Vangie DO Unavailable Unavailable Arpan, Vangie DO Unavailable Unavailable Arpan, Vangie DO Unavailable Unavailable Arpan, Vangie DO Unavailable Unavailable Arpan, Vangie DO Unavailable Unavailable Arpan, Vangie DO Unavailable Unavailable Arpan, Vangie DO Unavailable Unavailable Arpan, Vangie DO Unavailable Unavailable Arpan, Vangie DO Unavailable Unavailable Arpan, Vangie DO Unavailable Unavailable Arpan, Vangie DO Unavailable Unavailable Arpan, Vangie DO Unavailable Unavailable Arpan, Vangie DO Unavailable Unavailable Arpan, Vangie DO Unavailable Unavailable Arpan, Vangie DO Unavailable Unavailable Arpan, Vangie DO Unavailable Unavailable Arpan, Vangie DO Unavailable Unavailable Arpan, Vangie DO Unavailable Unavailable Arpan, Vangie DO Unavailable Unavailable Chandrika Crocker, Aime Ludwig MD, FACS Unavailable Unavailable Chandrika Crocker, Aime Ludwig MD, FACS Unavailable Unavailable Chandrika Crocker, Aime Ludwig MD, FACS Unavailable Unavailable Chandrika Crocker, Aime Ludwig MD, FACS Unavailable Unavailable Chandrika Crocker, Aime Ludwig MD, FACS Unavailable Unavailable Chandrika Crocker, Aime Ludwig MD, FACS Unavailable Unavailable Chandrika Crocker, Aime Ludwig MD, FACS Unavailable Unavailable Chandrika Crocker, Aime Ludwig MD, FACS Unavailable Unavailable Chandrika Crocker, Aime Ludwig MD, FACS Unavailable Unavailable Chandrika Crocker, Aime Ludwig MD, FACS Unavailable Unavailable Chandrika Crocker, Aime Ludwig MD, FACS Unavailable Unavailable Chandrika Crocker, Aime Ludwig MD, FACS Unavailable Unavailable Chandrika Crocker, Aime Ludwig MD, FACS Unavailable Unavailable Chandrika Crocker, Aime Ludwig MD, FACS Unavailable Unavailable Chandrika Crocker, Aime Ludwig MD, FACS Unavailable Unavailable Cobos Obi, Aime Ludwig MD, FACS Unavailable Unavailable Cobos Crocker, Aime Ludwig MD, FACS Unavailable Unavailable Cobos Crocker, Aime Ludwig MD, FACS Unavailable Unavailable Cobos Crocker, Aime Ludwig MD, FACS Unavailable Unavailable Cobos Crocker, Aime Ludwig MD, FACS Unavailable Unavailable Cobos Crocker, Aime Ludwig MD, FACS Unavailable Unavailable Cobos Crocker, Aime Ludwig MD, FACS Unavailable Unavailable Cobos Crocker, Aime Ludwig MD, FACS Unavailable Unavailable Cobos Crocker, Aime Ludwig MD, FACS Unavailable Unavailable Cobos Crocker, Aime Ludwig MD, FACS Unavailable Unavailable Cobos Crocker, Aime Ludwig MD, FACS Unavailable Unavailable Cobos Crocker, Aime Ludwig MD, FACS Unavailable Unavailable Cobos Crocker, Aime Ludwig MD, FACS Unavailable Unavailable Cobos Crocker, Aime Ludwig MD, FACS Unavailable Unavailable Cobos Crocker, Aime Ludwig MD, FACS Unavailable Unavailable Cobos Crocker, Aime Ludwig MD, FACS Unavailable Unavailable Cobos Crocker, Aime Ludwig MD, FACS Unavailable Unavailable Cobos Crocker, Aime Ludwig MD, FACS Unavailable Unavailable Cobos Crocker, Aime Ludwig MD, FACS Unavailable Unavailable Cobos Crocker, Aime Ludwig MD, FACS Unavailable Unavailable Cobos Crocker, Aime Ludwig MD, FACS Unavailable Unavailable Morgan JR, Aime Aguila MD Unavailable Unavailable Morgan JR, Aime Aguila MD Unavailable Unavailable Morgan JR, Aime Aguila MD Unavailable Unavailable Morgan JR, Aime Aguila MD Unavailable Unavailable Morgan JR, Aime Aguila MD Unavailable Unavailable Morgan JR, Aime Aguila MD Unavailable Unavailable Morgan JR, Aime Aguila MD Unavailable Unavailable Morgan JR, Aime Aguila MD Unavailable Unavailable Morgan JR, Aime Aguila MD Unavailable Unavailable Morgan JR, Aime Aguila MD Unavailable Unavailable Morgan JR, Aime Aguila MD Unavailable Unavailable Morgan JR, Aime Aguila MD Unavailable Unavailable Morgan JR, Aime Aguila MD Unavailable Unavailable Morgan JR, Aime Aguila MD Unavailable Unavailable Kari MOE MD Unavailable Unavailable Kari MOE MD Unavailable Unavailable Kari MOE MD Unavailable Unavailable Kari MOE MD Unavailable Unavailable Kari MOE MD Unavailable Unavailable Kari MOE MD Unavailable Unavailable PAYALKari BARCENAS MD Unavailable Unavailable PAYALKari BARCENAS MD Unavailable Unavailable PAYALKari BARCENAS MD Unavailable Unavailable PAYALKari BARCENAS MD Unavailable Unavailable Kari MOE MD Unavailable Unavailable Kari MOE MD Unavailable Unavailable Kari MOE MD Unavailable Unavailable Kari MOE MD Unavailable Unavailable Kari MOE MD Unavailable Unavailable PAYALKari BARCENAS MD Unavailable Unavailable PAYALKari BARCENAS MD Unavailable Unavailable PAYALKari BARCENAS MD Unavailable Unavailable PAYAL, Kari CHAPMAN MD Unavailable Unavailable PAYAL, O ADELA VALDES Unavailable Unavailable PAYAL, O ADELA VALDES Unavailable Unavailable PAYAL, O ADELA VALDES Unavailable Unavailable PAYAL, O ADELA VALDES Unavailable Unavailable PAYAL, O ADELA VALDES Unavailable Unavailable PAYAL, O ADELA VALDES Unavailable Unavailable PAYAL, O ADELA VALDES Unavailable Unavailable PAYAL, O ADELA VALDES Unavailable Unavailable PAYAL, O ADELA VALDES Unavailable Unavailable PAYAL, O ADELA VALDES Unavailable Unavailable PAYAL, O ADELA VALDES Unavailable Unavailable PAYAL, O ADELA VALDES Unavailable Unavailable PAYAL, O ADELA VALDES Unavailable Unavailable PAYAL, O ADELA VALDES Unavailable Unavailable PAYAL, O ADELA VALDES Unavailable Unavailable PAYAL, O ADELA VALDES Unavailable Unavailable PAYAL, O ADELA VALDES Unavailable Unavailable PAYAL, O ADELA VALDES Unavailable Unavailable PAYAL, O ADELA VALDES Unavailable Unavailable PAYAL, O ADELA VALDES Unavailable Unavailable PAYAL, O ADELA VALDES Unavailable Unavailable PAYAL, O ADELA VALDES Unavailable Unavailable Annemarie Ortiz MD . Unavailable Annemarie Ortiz MD . Unavailable Annemarie Ortiz MD . Unavailable Annemarie Ortiz MD . Unavailable Annemarie Ortiz MD . Unavailable Annemarie Ortiz MD . Unavailable Annemarie Ortiz MD . Unavailable Annemarie Ortiz MD . Unavailable Annemarie Ortiz MD . Unavailable Annemarie Ortiz MD . Unavailable Annemarie Ortiz MD . Unavailable Annemarie Ortiz MD . Unavailable Annemarie Ortiz MD . Unavailable Annemarie Ortiz MD . Unavailable Annemarie Ortiz MD . Unavailable Annemarie Ortiz MD . Unavailable Annemarie Ortiz MD . Unavailable Annemarie Ortiz MD . Unavailable Diana , Annemarie . Unavailable Diana , Annemarie . Unavailable Diana MD, Annemarie . Unavailable Diana MD, Annemarie . Unavailable Diana MD, Annemarie . Unavailable Diana MD, Annemarie . Unavailable Diana MD, Annemarie . Unavailable Diana MD, Annemarie . Unavailable Diana MD, Annemarie . Unavailable Diana MD, Annemarie . Unavailable Diana MD, Annemarie . Unavailable Diana MD, Annemarie . Unavailable Peri II, Cesar PA Unavailable Unavailable Peri II, Cesar PA Unavailable Unavailable Peri II, Cesar PA Unavailable Unavailable Peri II, Cesar PA Unavailable Unavailable Peri II, Cesar PA Unavailable Unavailable Peri II, Cesar PA Unavailable Unavailable Peri II, Cesar PA Unavailable Unavailable Peri II, Cesar PA Unavailable Unavailable Peri II, Cesar PA Unavailable Unavailable Peri II, Cesar PA Unavailable Unavailable Peri II, Cesar PA Unavailable Unavailable Peri II, Cesar PA Unavailable Unavailable Peri II, Cesar PA Unavailable Unavailable Peri II, Cesar PA Unavailable Unavailable Peri II, Cesar PA Unavailable Unavailable Peri II, Cesar PA Unavailable Unavailable Re-disclosure Warning The records that you are about to access may contain information from federally-assisted alcohol or drug abuse programs. If such information is present, then the following federally mandated warning applies: This information has been disclosed to you from records protected by federal confidentiality rules (42 CFR part 2). The federal rules prohibit you from making any further disclosure of this information unless further disclosure is expressly permitted by the written consent of the person to whom it pertains or as otherwise permitted by 42 CFR part 2. A general authorization for the release of medical or other information is NOT sufficient for this purpose. The Federal rules restrict any use of the information to criminally investigate or prosecute any alcohol or drug abuse patient.The records that you are about to access may contain highly sensitive health information, the redisclosure of which is protected by Article 27-F of the [facility] Public Health law. If you continue you may have access to information: Regarding HIV / AIDS; Provided by facilities licensed or operated by the [facility] Office of Mental Health; or Provided by the [facility] Office for People With Developmental Disabilities. If such information is present, then the following [facility] mandated warning applies: This information has been disclosed to you from confidential records which are protected by state law. State law prohibits you from making any further disclosure of this information without the specific written consent of the person to whom it pertains, or as otherwise permitted by law. Any unauthorized further disclosure in violation of state law may result in a fine or penitentiary sentence or both. A general authorization for the release of medical or other information is NOT sufficient authorization for further disc losure. Family History Family Member Name Family Member Gender Family Member Status Date o f Status Description Data Source(s) Unknown Unknown Problem [facility] ([facility], ) Unknown Male Problem [facility] ([facility] Unknown Unknown Problem [facility] ([facility], [facility]) Encounters Encounter Providers Location Date Indications Data Source(s ) Outpatient<td ID="encounterTypeDescripti onID0">1 Year Follow-Up</td><td>Oziel Teague MD, [facility]</td><td>Oziel Teague MD [facility]</td><td>03/03/2020</td><td>3:05PM</td><td>3:48PM</td><td><content ID="encounterDiagnosisID0-0">Cataract Senile Nuclear</content>, <content ID="encounterDiagnosisID0-1">Dry Eye Syndrome Both Eyes</content>, <content ID="encounterDiagnosisID0-2">Cataract Senile Cortical Bilateral</content>, <content ID="encounterDiagnosisID0-3">Corneal Dystrophy Endothelial Fuchs' Bilateral Eyes</content>, <content ID="encounterDiagnosisID0-4">Blepharitis Squamous</content></td> Attender: Oziel Crocker MD, [facility] 03/03/2020 03:05:00 PM EST - 03/03/2020 03:48:00 PM ES T Corneal Dystrophy Endothelial Fuchs' Bilateral EyesCataract Senile Cortical BilateralBlepharitis SquamousCataract Senile NuclearDry Eye Syndrome Both Eyes NAHUN (Oziel Crocker MD [facility]) Corneal Dystrophy Endothelial Fuchs' Jarocho ateral Eyes 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 [facility]patient [facility]: [facility] 01:45[facility]00 PM EST [facility] ([facility] ) Outpatient Attender: ADELA Rubin/Ananth/Ryan/Re indl 10/21/2019 11:30:00 AM EDT [facility] ([facility] Outpatient<td ID="encounterTypeDescripti onID1">Dilated Fundal Exam</td><td>Oziel Teague MD, FACS</td><td>Oziel Teague MD [facility]</td><td>08/13/2019</td><td>3:32PM</td><td>3:57PM</td><td><content ID="encounterDiagnosisID1-0">Posterior Vitreous Detachment Left Eye</content></td> Attender: Oziel Crocker MD, FACS Oziel Te[facility] MD [facility] 08/13/2019 03:32:00 PM EDT - 08/13/2019 03:57:00 PM EDT Posterior Vitreous Detachment Left EyePosterior Vitreous Detachment Left Eye NAHUN (Oziel Crocker MD [facility]) Posterior Vitreous Detachment Left Eye Posterior Vitreous Detachment Left Eye Outpatient Attender: Cesar Rubin/Ananth/Ryan/Rein dl 06/02/2019 01:30:00 PM EDT [facility] ([facility] Outpatient Attender: Annemarie Ortiz MD 05/29/2019 12:00:00 [facility] Outpatient<td ID="encounterTypeDescripti onID2">TRIAGE NON URGENT</td><td>Oziel Teague MD, FACS</td><td>Oziel Teague MD [facility]</td><td>04/14/2019</td><td>3:04PM</td><td>3:52PM</td><td><content ID="encounterDiagnosisID2-0">Posterior Vitreous Detachment Left Eye</content></td> Attender: Oziel Crocker MD, [facility] 04/14/2019 03:04:00 PM EST - 04/14/2019 03:52:00 PM EST Posterior Vitreous Detachment Left EyePosterior Vitreous Detachment Left EyePosterior Vitreous Detachment Left Eye NAHUN (Oziel Crocker MD [facility]) Posterior Vitreous Detachment Left Eye Posterior Vitreous Detachment Left Eye Posterior Vitreous Detachment Left Eye Outpatient<td ID="encounterTypeDescripti onID3">1 Year Follow-Up</td><td>Oziel Teague MD, FACS</td><td>Oziel Teague MD [facility]</td><td>03/05/2019</td><td>2:32PM</td><td>3:10PM</td><td><content ID="encounterDiagnosisID3-0">Cataract Senile Nuclear</content>, <content ID="encounterDiagnosisID3-1">Dry Eye Syndrome Both Eyes</content>, <content ID="encounterDiagnosisID3-2">Corneal Dystrophy Endothelial Fuchs'</content>, <content ID="encounterDiagnosisID3-3">Cataract Senile Cortical Bilateral</content></td> Attender: Oziel Crocker MD, [facility] 03/05/2019 02:32:00 PM EST - 03/05/2019 03:10:00 PM ES T Cataract Senile Cortical BilateralCorneal Dystrophy Endothelial Fuchs'Cataract Senile Cortical BilateralCataract Senile Cortical BilateralCataract Senile NuclearCataract Senile NuclearCataract Senile NuclearDry Eye Syndrome Both EyesCorneal Dystrophy Endothelial Fuchs'Dry Eye Syndrome Both EyesCorneal Dystrophy Endothelial Fuchs'Dry Eye Syndrome Both Eyes NAHUN (Oziel Crocker MD [facility]) Cataract Senile Cortical Bilateral Corneal Dystrophy Endothelial Fuchs' Cataract Senile Cortical Bilateral 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 Corneal Dystrophy Endothelial Fuchs' Dry Eye Syndrome Both Eyes Corneal Dystrophy Endothelial Fuchs' Dry Eye Syndrome Both Eyes Outpatient Attender: Mingo Rubin/Ananth/Ryan/Kaylyn indl 02/09/2019 01:45:00 PM EST [facility] ([facility] Medications Medication Brand Name Start Date Product Form Dose Route Admi nistrative Instructions Pharmacy Instructions Status Indications Reaction Description Data Source(s) pantoprazole 40 MG Delayed Release Oral Tablet PANTOPRAZOLE SODIUM 03/24/2020 12:00:00 AM EST tablet,delayed release (DR/EC) 30 T KRUNAL ONE TABLET BY MOUTH EVERY MORNING TAKE ONE TABLET BY MOUTH EVERY MORNING SOLD: 03/31/2020 [facility] 324 mg (38 mg iron) 02/05/2020 12:00:00 AM EST tablet 30 TAKE ONE TABLET BY MOUTH EVERY DAY TAKE ONE TABLET BY MOUTH EVERY DAY SOLD: 02/05/2020 [facility] ferrous gluconate 324 MG Oral Tablet Ferrous Gluconate 12:00:00 AM EST ORAL active [facility] ([facility]) Fexofenadine hydrochloride 180 MG Oral Tablet Fexofenadine H CL 12/30/2018 12:00:00 AM EDT ORAL completed [facility] ([facility]) Acetaminophen 500 MG Oral Tablet Acetaminophen 11/27/2018 12:00:00 AM EDT ORAL completed [facility] ([facility]) Insurance Providers Payer name Policy type / Coverage type Policy ID Covered alliance party ID Covered alliance party's relationship to odom Policy Odom Plan Information MEDICARE BLUE PPO 306 [id number] SP [id number] MEDICARE BLUE PPO 306 [id number] SP [id number] EXCELLUS BCBS B [id number] S VYM [id number] BCBS of [facility] Other 0 Self 0 EXCELLUS MEDICARE BLUE PPO G [id number] Self [id number] BCBS of [facility] [place] Other 0 Self 0 BCBS of [facility] Other 0 Self 0 Medicare Blue Ppo Commercial [id number] Self [id number] Medicare Blue Ppo Commercial [id number] Self [id number] Medicare Blue Ppo Commercial [id number] Self [id number] [facility] Medigap Part B [id number] Self [id number] BS [place] Trad/[place] Medigap Part B [id number] Self [id number] BS [place] [id number] Self [id number] [place] Commercial [id number] Self [id number] Medicare Blue Ppo Commercial [id number] Self [id number] Medicare Blue Ppo Commercial [id number] Self [id number] [place] Other 0 Self 0 [place] Other 0 Self 0 [place] Other 0 Self 0 [place] Other 0 Self 0 Medicare Blue Ppo Commercial [id number] Self [id number] Medicare Blue Ppo Commercial [id number] Self [id number] Medicare Blue Ppo Commercial [id number] Self [id number] i/[facility] Health Medigap Part B Self BS [place] Trad/[place] Commercial 302/802 Self 302/802 Medicare Blue Ppo Commercial 802 Self 8 02 BS Medicare Blue Ppo/Hmo Commercial Self EXCELLUS BCBS B [id number] S [id number] [id number] [place] 305/805 [id number] SP [id number] SELF PAY UNAVAILABLE UNAVAILA BLE EXCELLUS C [id number] Self [id number] EXCELLUS BCBS P [id number] GHI S [id number] S [id number] GROUP HEALTH INSURANCE S [id number] S [id number] EXCELLUS BCBS P UNAVAILABLE S UNAV AILABLE GROUP HEALTH INSURANCE [id number] SP [id number] BCBS [place] PPO 302/307 [id number] SP [id number] EXCELLUS EXCHANGE O [id number] S [id number] GHI O [id number] S [id number] I O [id number] S [id number] UNAVAILABLE UNAVAILA BLE Problems, Conditions, and Diagnoses Code Display Name Description Problem Type Effective Dates Data Source(s) 944753666 Fuchs' corneal dystrophy (disorder) [place] eal Dystrophy Endothelial Fuchs' Bilateral Eyes Problem 03/03/2020 12:00:00 AM EST NAHUN (Stephany Crocker MD [facility]) 379.21 Posterior Vitreous Detachment Left Eye P osterior Vitreous Detachment Left Eye Problem 04/14/2019 12:00:00 AM EST NAHUN (Yogi Crocker MD [facility]) [id number] Posterior Vitreous Detachment Left Eye P osterior Vitreous Detachment Left Eye Problem 04/14/2019 12:00:00 AM EST NAHUN (Yoig Crocker MD [facility]) 379.21 Posterior Vitreous Detachment Left Eye P osterior Vitreous Detachment Left Eye Problem 04/14/2019 12:00:00 AM EST NAHUN (Yogi Crocker MD [facility]) 366.15 Cataract Senile Cortical Bilateral Cataract Nia le Cortical Bilateral Problem 03/05/2019 12:00:00 AM EST NAHUN (Oziel llamas MD [facility]) 366.15 Cataract Senile Cortical Bilateral Cataract Nia le Cortical Bilateral Problem 03/05/2019 12:00:00 AM EST NAHUN (Oziel llamas MD [facility]) 366.15 Cataract Senile Cortical Bilateral Cataract Nia le Cortical Bilateral Problem 03/05/2019 12:00:00 AM EST NAHUN (Oziel llamas MD [facility]) [id number] Monoclonal gammopathy (clinical) Monoclonal gamm opathy (clinical) Problem 02/09/2019 12:00:00 AM EST [facility] ([facility] ) Surgeries/Procedures Procedure Description Date Indications Data Source(s) Intermediate Eye Exam Established Patient Intermediate Eye Exam Established Patient 03/03/2020 12:00:00 AM EST NAHUN (Yogi Crocker MD [facility]) Surgical / procedural history : Bilatera l Inguinal Hernia Repair 2003, Umbilical Hernia Repair 12/2016 Surgical / procedural history : Bilatera l Inguinal Hernia Repair 2003, Umbilical Hernia Repair 12/201608/13/2019 12:00:00 AM EDT NAHUN (Oziel Crocker MD [facility]) Intermediate Eye Exam Established Patient Intermediate Eye Exam Established Patient 08/13/2019 12:00:00 AM EDT NAHUN (Yogi id A Chandrika Crocker MD [facility]) Intermediate Eye Exam Established Patient Intermediate Eye Exam Established Patient 08/13/2019 12:00:00 AM EDT NAHUN (Yogi id A Chandrika Crocker MD [facility]) Intermediate Eye Exam Established Patient Intermediate Eye Exam Established Patient 04/14/2019 12:00:00 AM EST NAHUN (Yogi id A Chandrika Crocker MD [facility]) Intermediate Eye Exam Established Patient Intermediate Eye Exam Established Patient 03/05/2019 12:00:00 AM EST NAHUN (Yogi id A Chandrika Crocker MD [facility]) Results ID Date Data Source [id number] 03/31/2020 10:30:00 AM EST [facility] Name Value Range Interpretation Code Description Data Madhuri rce(s) Supporting Document(s) SARS coronavirus 2 RNA Not Detected [facility] [place] This lab was ordered by [facility] and reported by [facility]. ID Date Data Source [id number] 02/24/2020 03:12:00 PM EST [facility] ([facility]) Name Value Range Interpretation Code Description Data Madhuri rce(s) Supporting Document(s) Glucose, Fasting 109 mg/dL 70-100 [facility] ([facility]) Creatinine For GFR 1.07 mg/dL 0.70-1.30 [facility] ([facility]) Blood Urea Nitrogen 14 mg/dL 7-18 [facility] ([facility]) Glomerular Filtration Rate Laboratory test result [facility] ([facility]) <content>Units are mL/min/1.73 m2</content>
<content></content>
<content>Chronic Kidney Disease Staging per NKF:</content>
<content></content>
<content>Stage I & II GFR >=60 Normal to Mildly Decreased</content>
<content>Stage III GFR 30-59 Moderately Decreased</content>
<content>Stage IV GFR 15-29 Severely Decreased</content>
<content>Stage V GFR <15 Very Little GFR Left</content>
<content>ESRD GFR <15 on PHOTOENGRAVING ETCHER</content>
<content></content> Sodium Level 139 meq/L 136-145 [facility] ([facility]) Carbon Dioxide Level 30 meq/L 21-32 [facility] ([facility]) Potassium Serum 4.0 meq/L 3.5-5.1 [facility] ([facility]) Chloride Level 107 meq/L 98-107 [facility] ([facility]) Anion Gap 2 meq/L 8-16 [facility] ([place] [facility]) Calcium Level 9.0 mg/dL 8.8-10.2 [facility] ([facility]) Ast/Sgot 27 U/L 7-37 [facility] ([place] [facility]) Alkaline Phosphatase 91 U/L 45-117 [facility] ([facility]) Alt/SGPT 24 U/L 12-78 [facility] ([place] [facility]) Bilirubin,Total 0.6 mg/dL 0.2-1.0 [facility] ([facility]) Albumin/Globulin Ratio 1.0 [facility] ([facility]) Total Protein 8.1 GM/DL 6.4-8.2 [facility] ([facility]) Albumin 4.0 GM/DL 3.2-5.2 [facility] ([place] [facility]) ID Date Data Source [id number] 02/24/2020 03:12:00 PM EST MED[facility] ([facility]) Name Value Range Interpretation Code Description Data Madhuri rce(s) Supporting Document(s) White Blood Count 3.3 10 4.0-10.0 [facility]) Hemoglobin 12.0 g/dL 13.5-17.5 [facility] ([facility]) Red Blood Count 3.59 10 4.30-6.10 [facility] ([facility]) Hematocrit 37.0 % 42.0-52.0 [facility] Mean Corpuscular Volume 103.1 fl 80.0-96.0 [facility] ([facility]) Mean Corpuscular Hemoglobin 33.4 pg 27.0-33.0 MD DENT ([facility]) Red Cell Distribution Width 12.6 % 11.5-14.5 MD DENT ([facility]) Platelet Count, Automated 212 10 150-450 MEDE NT ([facility]) Mean Corpuscular HGB Conc 32.4 g/dL 32.0-36.5 MED[facility] NT ([facility]) Lymph % 30.9 % 24.0-44.0 [facility] ([place] [facility]) [place] % 10.2 % 0.0-5.0 [facility] ([place] [facility]) Neutrophils % 57.1 % 36.0-66.0 [facility] ([facility]) Immature Granulocyte % 0.0 % 0-3.0 [facility] ([facility]) Eos % 1.2 % 0.0-3.0 [facility] ([place] [facility]) Baso % 0.6 % 0.0-1.0 [facility] ([place] [facility]) Neutrophils # 1.9 10 1.5-8.5 [facility] ([facility]) Nucleated Red Blood Cell % 0.0 % 0-0 MED ENT ([facility]) Lymph # 1.0 10 1.5-5.0 [facility] ([place] [facility]) [place] # 0.3 10 0.0-0.8 [facility] ([facility] [facility]) Baso # 0.0 10 0.0-0.2 [facility] ([place] [facility]) Eos # 0.0 10 0.0-0.5 [facility] ([place] [facility]) ID Date Data Source [id number] 02/04/2020 03:23:00 PM EST [facility] ([facility]) Name Value Range Interpretation Code Description Data Madhuri rce(s) Supporting Document(s) Ferritin [Mass/volume] in Serum or Plasma 81 ng/mL 26-388 [facility] ([facility]) Cobalamin (Vitamin B12) [Mass/volume] in Serum or Plasma 655 pg/mL 2 47-911 [facility] ([facility]) VITAMIN B12 NORMAL RANGE NORMAL 247 - 911 PG/ML INDETERMINATE 211 - 246 PG/ML DEFICIENT LESS THAN 211 PG/ML ID Date Data Source [id number] 02/04/2020 03:23:00 PM EST [facility] ([facility]) Name Value Range Interpretation Code Description Data Madhuri rce(s) Supporting Document(s) Iron (Fe) 61 ug/dL 65-175 [facility] ([place] [facility]) Percent Saturation 14.4 % 19.7-50.0 [facility] ([facility]) Total Iron Binding Capacity 424 ug/dL 250-450 ME DENT ([facility]) ID Date Data Source [id number] 02/04/2020 02:52:00 PM EST [facility] ([facility]) Name Value Range Interpretation Code Description Data Madhuri rce(s) Supporting Document(s) Triglyceride [Mass/volume] in Serum or Plasma 37 mg/dL 30-150 [facility] ([facility]) Cholesterol in HDL [Mass/volume] in Serum or Plasma 64 mg/dL 35-60 [facility] ([facility]) Cholesterol [Mass/volume] in Serum or Plasma 155 mg/dL 131-200 [facility] ([facility]) Cholesterol in LDL [Mass/volume] in Serum or Plasma by calcu lation 84 CALC 50-159 [facility] ([facility]) ID Date Data Source [id number] 02/04/2020 02:51:00 PM EST [facility] ([facility]) Name Value Range Interpretation Code Description Data Madhuri rce(s) Supporting Document(s) Thyrotropin [Units/volume] in Serum or Plasma by Detec tion limit <= 0.05 mIU/L 3.94 uIU/mL 0.36-3.74 [facility] ([facility] ) Thyroxine (T4) free [Mass/volume] in Serum or Plasma 0.76 ng/dL 0.76- 1.46 [facility] ([facility]) ID Date Data Source [id number] 11/25/2019 02:07:00 PM EDT [facility] ([facility]) Name Value Range Interpretation Code Description Data Madhuri rce(s) Supporting Document(s) Albumin % 58.6 % 55.8-66.1 [facility] ([place] [facility]) Cpwqz-0-Bzafnlcq % 3.7 % 2.9-4.9 [facility] ([facility]) Wqmn-4-Rfgixresv % 2.7 % 3.2-6.5 [facility] ([facility]) Somg-2-Ykawftyxj % 5.7 % 4.7-7.2 [facility] ([facility]) Gtmbf-7-Xygydbjab % 9.1 % 7.1-11.8 [facility] ([facility]) Gamma Globulin % 20.2 % 11.1-18.8 [facility] ([facility]) Albumin 4.28 GM/DL 3.29-5.55 [facility] ([place] [facility]) Ogytf-6-Kznabetrt 0.27 GM/DL 0.17-0.41 [facility] ([facility]) Xemm-0-Quzkkyyua 0.42 GM/DL 0.28-0.60 [facility] ([facility]) Ndab-3-Exthtwkmk 0.20 GM/DL 0.19-0.55 [facility] ([facility]) Ienly-0-Cokbemjqc 0.66 GM/DL 0.42-0.99 [facility] ([facility]) Gamma Globulins 1.47 GM/DL 0.65-1.58 [facility] ([facility]) Spep Interpretation Laboratory test result [facility] ([facility]) M-SPIKE NOTED IN LATE GAMMA REGION. CONCENTRATION = 1.31 GM/DL Total Protein 7.3 GM/DL 6.4-8.2 [facility] ([facility]) Laboratory test finding (navigational concept) Laboratory test result [facility] ([facility]) REV'D BY Vanessa LEAL ID Date Data Source [id number] 11/25/2019 02:07:00 PM EDT [facility] ([facility]) Name Value Range Interpretation Code Description Data Amdhuri rce(s) Supporting Document(s) Immunotyping Serum Igg Laboratory test result [facility] ([facility]) Immunotyping Serum [place] Laboratory test result [facility] ([facility]) It Serum Interpretation Laboratory test result [facility] ([facility]) MONOCLONAL IGG KAPPA Laboratory test finding (navigational concept) Laboratory test result [facility] ([facility]) REV'D BY Vanessa SARABIA Date Data Source [id number] 11/25/2019 02:07:00 PM EDT [facility] ([facility]) Name Value Range Interpretation Code Description Data Madhuri rce(s) Supporting Document(s) Free Lambda Light Chains Serum 3.4 mg/L 5.7-26.3 [facility]) [place]/Lambda Ratio Serum 48.12 0.26-1.65 [facility] T ([facility]) Performed at: RN - [facility] [address] [id number] Blade Boner: Pema Winters MD, Phone: [phone] Free [place] Light Chains Serum 163.6 mg/L 3.3-19.4 [facility] ([facility]) ID Date Data Source [id number] 11/25/2019 02:07:00 PM EDT [facility] ([facility]) Name Value Range Interpretation Code Description Data Madhuri rce(s) Supporting Document(s) Lactate dehydrogenase [Enzymatic activit y/volume] in Serum or Plasma by Lactate to pyruvate reaction 218 U/L 87-241 [facility] ID Date Data Source [id number] 11/25/2019 02:07:00 PM EDT [facility] ([facility]) Name Value Range Interpretation Code Description Data Madhuri rce(s) Supporting Document(s) Glucose, Fasting 85 mg/dL 70-100 [facility] ([facility]) Blood Urea Nitrogen 19 mg/dL 7-18 [facility] ([facility]) Creatinine For GFR 0.98 mg/dL 0.70-1.30 [facility] ([facility]) Glomerular Filtration Rate Laboratory test result [facility] ([facility]) <content>Units are mL/min/1.73 m2</content>
<content></content>
<content>Chronic Kidney Disease Staging per NKF:</content>
<content></content>
<content>Stage I & II GFR >=60 Normal to Mildly Decreased</content>
<content>Stage III GFR 30-59 Moderately Decreased</content>
<content>Stage IV GFR 15-29 Severely Decreased</content>
<content>Stage V GFR <15 Very Little GFR Left</content>
<content>ESRD GFR <15 on PHOTOENGRAVING ETCHER</content>
<content></content> Potassium Serum 4.1 meq/L 3.5-5.1 [facility] ([facility]) Sodium Level 140 meq/L 136-145 [facility] ([facility]) Anion Gap 2 meq/L 8-16 [facility] ([place] [facility]) Carbon Dioxide Level 29 meq/L 21-32 [facility] ([facility]) Chloride Level 109 meq/L 98-107 [facility] ([facility]) Alt/SGPT 25 U/L 12-78 [facility] ([place] [facility]) Calcium Level 8.7 mg/dL 8.8-10.2 [facility] ([facility]) Ast/Sgot 22 U/L 7-37 [facility] ([place] [facility]) Bilirubin,Total 0.4 mg/dL 0.2-1.0 [facility] ([facility]) Alkaline Phosphatase 81 U/L 45-117 [facility] ([facility]) Total Protein 7.6 GM/DL 6.4-8.2 [facility] ([facility]) Albumin/Globulin Ratio 0.9 [facility] ([facility]) Albumin 3.6 GM/DL 3.2-5.2 [facility] ([place] [facility]) ID Date Data Source [id number] 11/25/2019 02:07:00 PM EDT [facility] ([facility]) Name Value Range Interpretation Code Description Data Madhuri rce(s) Supporting Document(s) White Blood Count 3.5 10 4.0-10.0 [facility] ([facility]) Red Blood Count 3.32 10 4.30-6.10 [facility] ([facility]) Mean Corpuscular Volume 105.4 fl 80.0-96.0 [facility] ([facility]) Hemoglobin 11.6 g/dL 13.5-17.5 [facility] [facility] Hematocrit 35.0 % 42.0-52.0 [facility] [facility] Mean Corpuscular Hemoglobin 34.9 pg 27.0-33.0 MD [facility] ([facility]) Mean Corpuscular HGB Conc 33.1 g/dL 32.0-36.5 [facility] NT ([facility]) Red Cell Distribution Width 12.6 % 11.5-14.5 ME [facility] ([facility]) Neutrophils % 68.4 % 36.0-66.0 [facility]) Platelet Count, Automated 200 10 150-450 [facility] NT ([facility]) Eos % 1.1 % 0.0-3.0 [facility] ([place] [facility]) [place] % 9.7 % 0.0-5.0 [facility] ([place] [facility]) Lymph % 19.9 % 24.0-44.0 [facility] ([place] [facility]) Immature Granulocyte % 0.3 % 0-3.0 [facility] ([facility]) Nucleated Red Blood Cell % 0.0 % 0-0 [facility] ([facility]) Baso % 0.6 % 0.0-1.0 [facility] ([place] [facility]) Neutrophils # 2.4 10 1.5-8.5 [facility] [place] # 0.3 10 0.0-0.8 [facility] ([place] [facility]) Lymph # 0.7 10 1.5-5.0 [facility] ([place] [facility]) Baso # 0.0 10 0.0-0.2 [facility] ([place] [facility]) Eos # 0.0 10 0.0-0.5 [facility] ([place] [facility]) ID Date Data Source [id number] 06/10/2019 04:06:00 PM EDT [facility] Name Value Range Interpretation Code Description Data Madhuri rce(s) Supporting Document(s) Immunoglobulin G, Qn, Serum 1735 mg/dL 700-1600 Above high normal [facility] Effective June 22, 2019, Immunoglobulin G, Qn, Serum reference interval will be changing to: Age Male Female 0 - 10 days 496 - 1231 496 - 1231 11d - 6 months 175 - 639 184 - 697 7 - 11 months 261 - 791 295 - 787 1 - 3 years 428 - 1028 451 - 1071 4 - 6 years 538 - 1216 583 - 1262 7 - 9 years 580 - 1302 630 - 1350 10 - 11 years 601 - 1351 646 - 1407 12 - 13 years 610 - 1367 692 - 1433 14 - 15 years 630 - 1 392 717 - 1463 16 - 19 years 671 - 1456 719 - 1475 >19 years 603 - 1613 586 - 1602 Immunoglobulin A, Qn, Serum 12 mg/dL 61-437 Below low normal [facility] Result confirmed on concentration. Immunoglobulin M, Qn, Serum 20-172 Below low normal [facility] Result confirmed on concentration. Procedure Social History Code Duration Value Status Description Data Source(s ) Smoking 03/03/2020 03:49:44 PM EST Never smoked tobacco (findi ng) completed Never smoked tobacco (finding) NAHUN (Oziel Crocker MD [facility]) Smoking 08/13/2019 04:24:08 PM EDT Never smoked tobacco (findi ng) completed Never smoked tobacco (finding) NAHUN (Oziel Crocker MD [facility]) Smoking 04/16/2019 10:32:37 AM EST Never smoked tobacco (findi ng) completed Never smoked tobacco (finding) [place]IE (Oziel Crocker MD [facility]) Vital Signs ID Date Data Source UNK Name Value Range Interpretation Code Description Data Source(s) Body surface area Derived from formula 1.97 m2 1.97 m2 [facility] ([facility]) Body weight 77.736 kg 77.736 kg [facility] ([facility]) [employer] body weight 172 [lb_av] 172 [lb_av] [facility] Body mass index (BMI) [Ratio] 23.9 kg/m2 23.9 k g/m2 [facility] ([facility]) Body weight 171.38 [lb_av] 171.38 [lb_av] [facility] Body height 71 [in_i] 71 [in_i] [facility] ([facility]) 5'11" Diastolic blood pressure 82 mm[Hg] 82 mm[Hg] [facility] ([facility]) Systolic blood pressure 134 mm[Hg] 134 mm[Hg] M [facility] ([facility]) Diastolic blood pressure 70 mm[Hg] 70 mm[Hg] [facility] ([facility]) Systolic blood pressure 114 mm[Hg] 114 mm[Hg] [facility] ([facility]) Body surface area Derived from formula 1.96 m2 1.96 m2 [facility] ([facility]) Body weight 76.261 kg 76.261 kg [facility] ([facility]) [employer] body weight 172 [lb_av] 172 [lb_av] [facility] ([facility]) Body mass index (BMI) [Ratio] 23.4 kg/m2 23.4 k g/m2 [facility] ([facility]) Body weight 168.12 [lb_av] 168.12 [lb_av] [facility] Body height 71 [in_i] 71 [in_i] [facility] ([facility]) 5'11" Body mass index (BMI) [Ratio] 23.6 kg/m2 23.6 k g/m2 [facility] ([facility]) Oxygen saturation in Arterial blood by Pulse oximetry 100 % 100 % [facility] ([facility]) Air Body weight 169.00 [lb_av] 169.00 [lb_av] [facility] Body height 71 [in_i] 71 [in_i] [facility] ([facility]) 5'11" Heart rate 75 /min 75 /min [facility] ([facility]) Diastolic blood pressure 68 mm[Hg] 68 mm[Hg] [facility] ([facility]) Systolic blood pressure 120 mm[Hg] 120 mm[Hg] [facility] ([facility]) Body weight 76.658 kg 76.658 kg [facility] ([facility]) [employer] body weight 172 [lb_av] 172 [lb_av] [facility] ([facility]) Body mass index (BMI) [Ratio] 23.6 kg/m2 23.6 k g/m2 [facility] ([facility]) Body weight 169.00 [lb_av] 169.00 [lb_av] [facility] ([facility]) Body height 71 [in_i] 71 [in_i] [facility] ([facility]) 5'11" Diastolic blood pressure 74 mm[Hg] 74 mm[Hg] [facility] ([facility]) Systolic blood pressure 120 mm[Hg] 120 mm[Hg] [facility] ([facility]) Body weight 77.339 kg 77.339 kg [facility] ([facility]) Body mass index (BMI) [Ratio] 23.8 kg/m2 23.8 k g/m2 [facility] ([facility]) Body weight 170.50 [lb_av] 170.50 [lb_av] [facility] ([facility]) Body height 71 [in_i] 71 [in_i] [facility] ([facility]) 511" Diastolic blood pressure 72 mm[Hg] 72 mm[Hg] [facility] ([facility]) Systolic blood pressure 122 mm[Hg] 122 mm[Hg] [facility] ([facility]) Body weight 78.019 kg 78.019 kg [facility] ([facility]) Body mass index (BMI) [Ratio] 24.0 kg/m2 24.0 k g/m2 [facility] ([facility]) Body weight 172.00 [lb_av] 172.00 [lb_av] [facility] ([facility]) Body height 71 [in_i] 71 [in_i] [facility] ([facility]) 5'11" Body mass index (BMI) [Ratio] 23.8 kg/m2 23.8 k g/m2 [facility] ([facility]) Oxygen saturation in Arterial blood by Pulse oximetry 99 % 99 % [facility] ([facility]) Air Body weight 171.00 [lb_av] 171.00 [lb_av] [facility] T ([facility]) Body height 71 [in_i] 71 [in_i] [facility] ([facility]) 5'11" Heart rate 73 /min 73 /min SC[facility] ([facility]) Diastolic blood pressure 70 mm[Hg] 70 mm[Hg] [facility] ([facility]) Systolic blood pressure 120 mm[Hg] 120 mm[Hg] Demian THORPE ([facility])
--- OUTSIDE RECORDS SUMMARY | 2020-04-05 10:54 | CCD | Continuity of Care Document ---
Author Author Darnell HINSON Organization Unknown Address [address] [facility] [address] [place] [address] Phone [phone] Care Team Providers Care Chronic Specialist Name Role Phone Vangie Hinson DO [facility] Unavailable Stef Ortiz MD [facility] [phone] Oziel Teague MD [facility] [phone] Problems Active Problems Provider Date Monoclonal paraproteinemia [...] Vangie Hinson DO 10/21/2018 Calcium 600/Vitamin D3 [id number] Tablets 1 by mouth every day Vangie Hinson DO 08/21 Centrum Adults Tablets 1 by mouth every day GABBY Grey 04/11/2016 Immunizations CPT Code Status Date Vaccine Lot # [id number] Refused 12/30/2018 Influenza Vaccin e Quadrivalent Preser/Antibiotic [...] H/L Range Note Laboratory test finding 02/04/2020 [place] [address] [phone] Ferritin <pending> Vitamin B12 Level <pending> Lipid Profile 02/04/2020 [facility] Wet Process: [address] [place] [address] [place] [address] [phone] Cholesterol 155 mg/dL 131 - 200 Triglycerides 37 mg/dL 30 - 150 HDL Cholesterol 64 mg/dL High 35 - 60 LDL (Calculated) 84 CALC 50 - 159 Laboratory test finding 02/04/2020 [facility] Wet Process: Dr Santo Mejía [place] [id number] [phone] Thyroid Stimulating Hormone 3.94 uIU/mL High 0.3 6 - 3.74 T4 Free 0.76 ng/dL 0.76 - 1.46 CBC With Differential 11/25/2019 [place] [id number] [phone] White Blood Count 3.5 10 Low 4.0-10.0 [...] 36.0-66.0 Lymph % 19.9 % Low 24.0-44.0 [place] % 9.7 % High 0.0-5.0 Eos % 1.1 % Normal 0.0-3.0 Baso % 0.6 % Normal 0.0-1.0 Immature Granulocyte % 0.3 % Normal 0-3.0 Nucleated Red Blood Cell % 0.0 % Normal 0-0 Neutrophils # 2.4 10 Normal 1.5-8.5 Lymph # 0.7 10 Low 1.5-5.0 [place] # 0.3 10 Normal 0.0-0.8 Eos # 0.0 10 Normal 0.0-0.5 Baso # 0.0 10 Normal 0.0-0.2 Comprehensive Metabolic Profil 11/25/[address] [address] [phone] Glucose, Fasting 85 mg/dL Normal 70-100 Blood [...] Ratio 0.9 Normal Laboratory test finding 11/25/2019 [facility] [address] [place] [address] [phone] LDH Lactate Dehydrogenase 218 U/L Normal 87-241 Free [place] & Lambda LT Chains 11/25/[address] [address] [phone] Free [place] Light Chains Serum 163.6 mg/L High 3. 3-19.4 Free Lambda Light Chains Serum 3.4 mg/L Low 5.7-26.3 [place]/Lambda Ratio Serum 48.12 High 0.26-1.65 2 Immunotyping (Immunofixation) Serum (If 11/25/[address] [address] [phone] Immunotyping Serum Igg ABNORMAL High Normal Immunotyping Serum [place] ABNORMAL High Normal It Serum Interpretation SEE COMMENT Normal 3 Its Pathologist Review REV'D BY Vanessa FAJARDO <SEE NOTE> Normal 4 Serum Protein Electrophoresis 11/25/[address] [address] [phone] Albumin % 58.6 % Normal 55.8-66.1 Glxdo-2-Qknlxvuq % 3.7 % Normal 2.9-4.9 Szdqk-1-Wboqmcfew % 9.1 % Normal 7.1-11.8 Afmv-4-Sbwzyygfm % 5.7 % Normal 4.7-7.2 Jqjh-4-Hnnyycjlc % 2.7 % Low 3.2-6.5 Gamma Globulin % 20.2 % High 11.1-18.8 Albumin 4.28 GM/DL Normal 3.29-5.55 Oitve-5-Gwnzdlrao 0.27 GM/DL Normal 0.17-0.41 Mfifu-9-Nuajzscyl 0.66 GM/DL Normal 0.42-0.99 Priu-0-Yxjxuvxuu 0.42 GM/DL Normal 0.28-0.60 Xkoe-9-Ffklucfwg 0.20 GM/DL Normal 0.19-0.55 Gamma Globulins 1.47 [...] Little GFR Left ESRD GFR <15 on FILTERING MACHINE TENDER 2 Performed at: RN - [facility] [address] [id number] [place] [facility] Wet [employer]: Pema Winters MD, Phone: [phone] MONOCLONAL IGG KAPPA 4 REV'D BY Vanessa LEAL 5 M-SPIKE NOTED IN LATE GAMMA REGION. CONCENTRATION = 1.31 GM/DL 6 REV'D BY Vanessa LEAL Procedures Date Code Description Status 11/06/2012 [id number] Diabetic Foot Exam Completed 09/24/2012 [id number] Diabetic Foot Exam Completed 10/27/2001 [id number] Colonoscopy Completed Medical Devices Description No Information [...] 2:15 pm - Vangie Hinson DO at [facility] 02/04/2020 - Vangie Hinson DO* R53.83 Other fatigue * D64.9 Anemia, unspecified * D47.2 Monoclonal gammopathy * F41.9 Anxiety disorder, unspecified * R23.1 Pallor Functional Status Description No Information Available Mental Status Description No Information Available Referrals Description No Information Available
--- OUTSIDE RECORDS SUMMARY | 2020-04-05 10:54 | CCD | Continuity of Care Document ---
Author Author Darnell HINSON Organization Unknown Address [address] [facility] [address] [place] [address] Phone [phone] Care Team Providers Care Project Drilling Engineer Name Role Phone Vangie Hinson DO AUTM Unavailable Stef Ortiz MD AUTM [phone] Oziel Teague MD AUTM [phone] Problems Active Problems Provider Date Monoclonal paraproteinemia [...] Vangie Hinson DO 10/21/2018 Calcium 600/Vitamin D3 [id number] Tablets 1 by mouth every day Vangie Hinson DO 08/21 Centrum Adults Tablets 1 by mouth every day GABBY Grey 04/11/2016 Immunizations CPT Code Status Date Vaccine Lot # [id number] Refused 12/30/2018 Influenza Vaccin e Quadrivalent Preser/Antibiotic [...] Range Note Total Iron Binding Capacit 02/04/[address] [address] [phone] Iron (Fe) 61 g/dL Low 65-175 Total Iron Binding Capacity 424 g/dL Normal 250-450 Percent Saturation 14.4 % Low 19.7-50.0 Laboratory test finding 02/04/[address] [address] [phone] Ferritin 81 NG/ML Normal 26-388 Vitamin B12 Level 655 pg/mL Normal 247-911 1 Lipid Profile 02/04/2020 [facility] Program Resident: Dr [address] [place] [phone] Cholesterol 155 mg/dL 131 - 200 Triglycerides 37 mg/dL 30 - 150 HDL Cholesterol 64 mg/dL High 35 - 60 LDL (Calculated) 84 CALC 50 - 159 Laboratory test finding 02/04/2020 [facility] Resident: Dr [address] [place] [phone] Thyroid Stimulating Hormone 3.94 uIU/mL High 0.3 6 - 3.74 T4 Free 0.76 ng/dL 0.76 - 1.46 CBC With Differential 11/25/[address] [address] [phone] White Blood Count 3.5 10 Low 4.0-10.0 [...] 36.0-66.0 Lymph % 19.9 % Low 24.0-44.0 [place] % 9.7 % High 0.0-5.0 Eos % 1.1 % Normal 0.0-3.0 Baso % 0.6 % Normal 0.0-1.0 Immature Granulocyte % 0.3 % Normal 0-3.0 Nucleated Red Blood Cell % 0.0 % Normal 0-0 Neutrophils # 2.4 10 Normal 1.5-8.5 Lymph # 0.7 10 Low 1.5-5.0 [place] # 0.3 10 Normal 0.0-0.8 Eos # 0.0 10 Normal 0.0-0.5 Baso # 0.0 10 Normal 0.0-0.2 Comprehensive Metabolic Profil 11/25/[address] [address] [phone] Glucose, Fasting 85 mg/dL Normal 70-100 Blood [...] Ratio 0.9 Normal Laboratory test finding 11/25/[address] [address] [phone] LDH Lactate Dehydrogenase 218 U/L Normal 87-241 Free [place] & Lambda LT Chains 11/25/[address] [address] [phone] Free [place] Light Chains Serum 163.6 mg/L High 3. 3-19.4 Free Lambda Light Chains Serum 3.4 mg/L Low 5.7-26.3 [place]/Lambda Ratio Serum 48.12 High 0.26-1.65 3 Immunotyping (Immunofixation) Serum (If 11/25/[address] [address] [phone] Immunotyping Serum Igg ABNORMAL High Normal Immunotyping Serum [place] ABNORMAL High Normal It Serum Interpretation SEE COMMENT Normal 4 Its Pathologist Review REV'D BY Vanessa FAJARDO <SEE NOTE> Normal 5 Serum Protein Electrophoresis 11/25/[address] [address] [phone] Albumin % 58.6 % Normal 55.8-66.1 Uhckk-9-Ywevncbb % 3.7 % Normal 2.9-4.9 Xabsw-2-Gndllcqek % 9.1 % Normal 7.1-11.8 Bgwi-8-Noxohghqs % 5.7 % Normal 4.7-7.2 Zamd-1-Jkjcrkmjp % 2.7 % Low 3.2-6.5 Gamma Globulin % 20.2 % High 11.1-18.8 Albumin 4.28 GM/DL Normal 3.29-5.55 Nqznu-2-Zwoiwewug 0.27 GM/DL Normal 0.17-0.41 Fddhn-0-Wkhhemufg 0.66 GM/DL Normal 0.42-0.99 Iddo-2-Vwtjfwiji 0.42 GM/DL Normal 0.28-0.60 Yjpn-0-Kwujyqmtn 0.20 GM/DL Normal 0.19-0.55 Gamma Globulins 1.47 [...] Little GFR Left ESRD GFR <15 on DIRECTOR OF INSTITUTIONAL SALES 3 Performed at: RN - [facility] [address] [id number] Memory Care Program Resident: Pema Winters MD, Phone: [phone] MONOCLONAL IGG KAPPA 5 REV'D BY Vanessa LEAL 6 M-SPIKE NOTED IN LATE GAMMA REGION. CONCENTRATION = 1.31 GM/DL 7 REV'D BY Vanessa LEAL Procedures Date Code Description Status 11/06/2012 815998418 Diabetic Foot Exam Completed 09/24/2012 [id number] Diabetic Foot Exam Completed 10/27/2001 [id number] Colonoscopy Completed Medical Devices Description No Information Available Encounters Description No Information Available Assessments Date Code Description Provider 02/04/2020 R53.83 Other fatigue Vangie Hinson, 02/04/2020 D64.9 Anemia, unspecified Vangie Hinson DO 02/04/2020 D47.2 Monoclonal gammopathy Vangie rivera,DO 02/04/2020 F41.9 Anxiety disorder, unspecified La tracie Hinson DO 02/04/2020 R23.1 Pallor Vangie Hinson DO Plan of Treatment Future Appointment(s):* 05/10/2020 2:15 pm - Vangie Hinson DO at [facility] 02/04/2020 - Vangie Hinson DO* R53.83 Other fatigue * D64.9 Anemia, unspecified * D47.2 Monoclonal gammopathy * F41.9 Anxiety disorder, unspecified * R23.1 Pallor Functional Status Description No Information Available Mental Status Description No Information Available Referrals Description No Information Available
[2020-04-05] MEDS ORDERED: fentaNYL 100 MCG/2 ML INJECTION (J3010) As Ordered ONE (11:27)
[2020-04-05] MEDS ORDERED: MIDAZOLAM INJ 2MG/2ML VIAL (J2250 PER 1MG) As Ordered ONE (11:27)
[2020-04-05 12:45] VITALS: BP 122/68
[2020-04-05] MEDS ORDERED: ePHEDrine SULFATE 25 MG/5 ML(5MG/ML) SYRINGE As Ordered ONE (12:59)
[2020-04-05] MEDS ORDERED: propofoL 200 MG/20 ML VIAL As Ordered ONE (13:30)
--- NOTE | 2020-04-05 13:33 | ROOR ---
Patient Name: Darnell Pardo Procedure Date: 04/05/2020 11:45 AM Date of : 1950 Age: 70 Room: [facility] Gender: Male Note Status: Finalized Procedure: Upper GI endoscopy Indications: Iron deficiency anemia Providers: Stef Ortiz MD Referring MD: Vangie Antony DO Requesting Provider: Medicines: Monitored Anesthesia Care Complications: No immediate complications. Procedure: Pre-Anesthesia Assessment: - Prior to the procedure, a History and Physical was performed, and patient medications and allergies were reviewed. The patient is competent. The risks and benefits of the procedure and the sedation options and risks were discussed with the patient. All questions were answered and informed consent was obtained. Patient identification and proposed procedure were verified by the physician, the nurse and the master yacht in the procedure room. Mental Status Examination: alert and oriented. Airway Examination: normal oropharyngeal airway and neck mobility. Prophylactic Antibiotics: The patient does not require prophylactic antibiotics. Prior Anticoagulants: The patient has taken no previous anticoagulant or antiplatelet agents. ASA Grade Assessment: II - A patient with mild systemic disease. After reviewing the risks and benefits, the patient was deemed in satisfactory condition to undergo the procedure. The anesthesia plan was to use monitored anesthesia care (MAC). Immediately prior to administration of medications, the patient was re-assessed for adequacy to receive sedatives. The heart rate, respiratory rate, oxygen saturations, blood pressure, adequacy of pulmonary ventilation, and response to care were monitored throughout the procedure. The physical status of the patient was re-assessed after the procedure. The Endoscope was introduced through the mouth, and advanced to the second part of duodenum. The upper GI endoscopy was accomplished without difficulty. The patient tolerated the procedure well. Findings: The examined duodenum was normal. Multiple 3 to 8 mm sessile polyps with no bleeding and no stigmata of recent bleeding were found in the entire examined stomach. Normal mucosa was found in the entire examined stomach. Biopsies were taken with a cold forceps for Helicobacter pylori testing. The Z-line was irregular. In the mid to upper esophagus patient was found to have some small submucosal collections of blood suggestive of venous lakes. These were not consistent with varices. Impression: - Normal examined duodenum. - Multiple gastric polyps. - Normal mucosa was found in the entire stomach. Biopsied. - Z-line irregular. - Normal mucosa was found in the proximal esophagus. Recommendation: - Discharge patient to home. - Resume previous diet. - Continue present medications. - Return to endoscopist in 2 weeks. Procedure Code(s): --- Professional --- 57856, Esophagogastroduodenoscopy, flexible, transoral; with biopsy, single or multiple Diagnosis Code(s): --- Professional --- K31.7, Polyp of stomach and duodenum K22.8, Other specified diseases of esophagus D50.9, Iron deficiency anemia, unspecified CPT copyright 2019 [employer]. All rights reserved. The codes documented in this report are preliminary and upon spray booth operator review may be revised to meet current compliance requirements. Stef Ortiz MD Stef Ortiz MD 04/05/2020 1:32:28 PM Electronically signed by Stef Ortiz MD Number of Addenda: 0 Note Initiated On: 04/05/2020 11:45 AM Estimated Blood Loss: Estimated blood loss was minimal. Estimated blood loss was minimal.
== END 2020-04-05 13:59 | disposition home or self-care (01) ==
LOC: M OPP 10:47
PROVIDERS: ATTEND Surgery
DX: D50.9 Iron deficiency anemia, unspecified (principal); D13.1 Benign neoplasm of stomach; K22.8 Other specified diseases of esophagus; K58.9 Irritable bowel syndrome, unspecified; R12 Heartburn; D47.2 Monoclonal gammopathy; Z88.0 Allergy status to penicillin; Z88.2 Allergy status to sulfonamides; Z88.8 Allergy status to other drugs, medicaments and biological substances; Z79.899 Other long term (current) drug therapy; Z82.49 Family history of ischemic heart disease and other diseases of the circulatory system
CPT/HCPCS: 43239; 88305; 88342; J3010

== ENCOUNTER 2020-09-02 09:32 | Emergency (ER) | payer MEDICARE ==
[~2020-09-02] VITALS: Ht 177.8 cm; Wt 82.8 kg
[~2020-09-02 09:32] MED LIST changes: +FERR32TA; -LIDOCAINE 2% 100MG/5ML SDV (FOR ANES.) As Ordered ONE; -NS 1,000 ML IV ONE; -propofoL 200 MG/20 ML VIAL As Ordered ONE
--- NOTE | 2020-09-02 10:58 | REP ---
INDICATION: tachycardia. COMPARISON: 03/22/2020. TECHNIQUE: Single portable AP view of the chest was performed. FINDINGS: There is no acute infiltrate or pulmonary edema. Lungs are clear. The heart is not significantly enlarged. The mediastinal silhouette is unremarkable. The visualized osseous structures are intact. IMPRESSION: No acute pulmonary disease. <Electronically signed by Darrick Clifton > 09/02/20 1053
--- NOTE | 2020-09-02 11:05 | REP ---
INDICATION: pain COMPARISON: None. TECHNIQUE: Four views left foot. FINDINGS: There is no evidence of acute fracture, dislocation, or intrinsic bone disease.There is mild inferior calcaneal spurring. There is mild narrowing of the 1st metatarsophalangeal joint. There is mild smooth erosion of the lateral aspect of the head of the 1st metatarsal. IMPRESSION: No fracture or dislocation. Mild degenerative changes. <Electronically signed by Darrick Clifton > 09/02/20 [id number]
--- NOTE | 2020-09-02 11:32 | REP ---
INDICATION: edema/pain. COMPARISON: None. TECHNIQUE: Multiple ultrasonographic images of the deep venous structures of the left lower extremity were obtained from the inguinal ligament to the ankle. Venous compression techniques, color doppler imaging, and augmentation techniques were also obtained where appropriate. As per the ACR guidelines the anterior tibial vein can not be effectively evaluated. Only compression techniques in the calf on the peroneal and posterior tibial veins was attempted/performed. FINDINGS: There is no abnormal echogenic material seen within any of the visualized deep venous structures that would suggest acute thrombosis. Coaptation is unremarkable throughout. Doppler interrogation shows an expected response to respiratory variability and augmentation in the thigh. Compression techniques in the calf showed no abnormality. The color flow images show what appears to be a normal vascular pattern throughout the thigh. IMPRESSION: There is no ultrasonographic evidence of deep venous thrombosis involving any of the visualized deep venous structures of the left lower extremity as described above. <Electronically signed by Anthony Lozano > 09/02/20 1123
[2020-09-02 12:25] LABS: BASO % 0.4 % (0.0-1.0); EOS # 0.1 10^3/uL (0.0-0.5); EOS % 1.1 % (0.0-3.0); HEMATOCRIT 33.3 % (42.0-52.0); HEMOGLOBIN 11.3 g/dl (13.5-17.5); LYMPH # 0.8 10^3/uL (1.5-5.0); LYMPH % 16.6 % (24.0-44.0); MEAN CORPUSCULAR HGB CONC 33.9 g/dl (32.0-36.5); MEAN CORPUSCULAR VOLUME 103.1 fl (80.0-96.0); MONO # 0.4 10^3/uL (0.0-0.8); MONO % 8.7 % (2.0-8.0); NEUTROPHILS # 3.4 10^3/uL (1.5-8.5); PLATELET COUNT, AUTOMATED 161 10^3/uL (150-450); RED BLOOD COUNT 3.23 10^6/uL (4.30-6.10); WHITE BLOOD COUNT 4.6 10^3/uL (4.0-10.0)
[2020-09-02 13:01] LABS: ERYTHROCYTE SEDIMENTATION RATE 19 mm/hr (0-20)
[2020-09-02 13:03] LABS: ALT/SGPT 29 IU/L (0-32); BLOOD UREA NITROGEN 21 MG/DL (7-18); CALCIUM LEVEL 8.5 MG/DL (8.8-10.2); CARBON DIOXIDE LEVEL 28 mmol/L (20-29); CHLORIDE LEVEL 104 MEQ/L (98-107); CPK CREATINE PHOSPHOKINASE 349 U/L (39-308); CREATININE FOR GFR 1.01 MG/DL (0.70-1.30); GLOMERULAR FILTRATION RATE > 60.0 (>42); GLUCOSE, FASTING 102 MG/DL (70-100); MB/CK RELATIVE INDEX 0.57 (< OR =4); POTASSIUM SERUM 3.8 MEQ/L (3.5-5.1); SODIUM LEVEL 137 MEQ/L (136-145)
[2020-09-02 13:04] LABS: ALBUMIN 3.7 GM/DL (3.2-5.2); BILIRUBIN,TOTAL 0.5 MG/DL (0.2-1.0); TOTAL PROTEIN 8.3 GM/DL (6.4-8.2)
[2020-09-02 13:05] LABS: NT-PRO BNP 110 PG/ML (<125); TROPONIN I < 0.02 NG/ML (< 0.10)
[2020-09-02 13:06] LABS: FERRITIN 105 NG/ML (26-388); THYROXINE (T4) 7.3 UG/DL (4.5-12.0); TOTAL IRON BINDING CAPACITY 405 UG/DL (250-450)
[2020-09-02 13:22] LABS: BILIRUBIN,DIRECT 0.1 MG/DL (0.0-0.2); IRON (FE) 66 UG/DL (65-175); PERCENT SATURATION 16.3 % (19.7-50.0)
[2020-09-02] MEDS ORDERED: KETO10TAB PO (13:54)
[2020-09-02 14:24] VITALS: BP 131/77
[2020-09-02 14:58] LABS: URIC ACID 4.3 MG/DL (3.5-7.2)
--- NOTE | 2020-09-02 19:52 | ECGEPIP ---
[facility] - ED Test Date: 2020-09-02 Pat Name: SHANEL MANNING Department: Room: - Gender: Male Clinical Manager Home Care: ABELARDO : 1950 Requested By: OZIEL Beyer Order Number: [id number] Reading MD: Oziel Ambrosio Measurements Intervals [place] Rate: 83 P: 58 [place]: 168 QRS: -4 QRSD: 74 T: 41 QT: 342 QTc: 401 Interpretive Statements Normal sinus rhythm Comparison tracing not on file Electronically Signed on 09-02-2020 19:52:34 EDT by Oziel Ambrosio
== END 2020-09-02 14:38 | disposition home or self-care (01) ==
LOC: M ED 09:32
DX: M72.2 Plantar fascial fibromatosis (principal); M79.672 Pain in left foot; D47.2 Monoclonal gammopathy; E61.1 Iron deficiency; Z79.899 Other long term (current) drug therapy; Z88.0 Allergy status to penicillin; Z88.2 Allergy status to sulfonamides; Z88.1 Allergy status to other antibiotic agents

== ENCOUNTER 2022-03-26 19:24 | Emergency (ER) | payer MEDICARE ==
[~2022-03-26] VITALS: Ht 180.3 cm; Wt 85.5 kg
[~2022-03-26 19:24] MED LIST changes: +FERR32TA PO; +KETO10TAB PO; +META28.32 PO
[2022-03-26 20:06] LABS: BASO % 0.5 % (0.0-1.0); EOS # 0.1 10^3/uL (0.0-0.5); EOS % 1.3 % (0.0-3.0); HEMATOCRIT 35.1 % (42.0-52.0); HEMOGLOBIN 11.7 g/dl (13.5-17.5); LYMPH % 25.5 % (24.0-44.0); MEAN CORPUSCULAR HEMOGLOBIN 35.6 pg (27.0-33.0); MEAN CORPUSCULAR HGB CONC 33.3 g/dl (32.0-36.5); MEAN CORPUSCULAR VOLUME 106.7 fl (80.0-96.0); MONO # 0.3 10^3/uL (0.0-0.8); MONO % 7.5 % (2.0-8.0); NEUTROPHILS # 2.6 10^3/uL (1.5-8.5); NEUTROPHILS % 64.9 % (36.0-66.0); PLATELET COUNT, AUTOMATED 207 10^3/uL (150-450); RED BLOOD COUNT 3.29 10^6/uL (4.30-6.10)
[2022-03-26 20:20] LABS: INR 1.01; PARTIAL THROMBOPLASTIN TIME 28.1 SECONDS (24.8-34.2); PROTHROMBIN TIME 13.5 SECONDS (12.5-14.5)
[2022-03-26 20:33] LABS: BLOOD UREA NITROGEN 11 MG/DL (9-23); CALCIUM LEVEL 8.8 MG/DL (8.3-10.6); CARBON DIOXIDE LEVEL 28 MMOL/L (20-31); CHLORIDE LEVEL 104 MMOL/L (98-107); CK-MB VALUE MASS 1.9 NG/ML (<3.6); CREATININE FOR GFR 0.96 MG/DL (0.70-1.30); GLOMERULAR FILTRATION RATE > 60.0 (>42); GLUCOSE, FASTING 88 MG/DL (74-106); POTASSIUM SERUM 3.7 MMOL/L (3.5-5.1); SODIUM LEVEL 140 MMOL/L (136-145)
[2022-03-26 20:34] LABS: CPK CREATINE PHOSPHOKINASE 388 U/L (46-171); MB/CK RELATIVE INDEX 0.48 (< OR =4)
[2022-03-26 21:06] LABS: ALKALINE PHOSPHATASE 93 U/L (46-116); ALT/SGPT 20 U/L (7.0-40); AST/SGOT 28 U/L (<34); BILIRUBIN,DIRECT 0.3 MG/DL (<0.4); TOTAL PROTEIN 7.6 G/DL (5.7-8.2)
[2022-03-26 21:46] LABS: CK-MB VALUE MASS 1.6 NG/ML (<3.6)
[2022-03-26 21:47] LABS: CPK CREATINE PHOSPHOKINASE 347 U/L (46-171); MB/CK RELATIVE INDEX 0.46 (< OR =4)
[2022-03-26 22:15] VITALS: BP 129/70
== END 2022-03-26 22:45 | disposition home or self-care (01) ==
LOC: M ED 20:10
DX: M54.6 Pain in thoracic spine (principal); K80.50 Calculus of bile duct without cholangitis or cholecystitis without obstruction; R94.31 Abnormal electrocardiogram [ECG] [EKG]; Z88.2 Allergy status to sulfonamides; Z88.0 Allergy status to penicillin; Z88.8 Allergy status to other drugs, medicaments and biological substances; Z79.899 Other long term (current) drug therapy

== ENCOUNTER → 2022-04-17 | Outpatient (REF) | payer MEDICARE ==
[2022-04-17 19:30] LABS: PERCENT SATURATION 23.2 % (19.7-50.0)
== END ==
LOC: M LAB REF 16:53
PROVIDERS: ATTEND Internal Medicine
DX: D50.9 Iron deficiency anemia, unspecified (principal)

== ENCOUNTER → 2022-05-03 | Outpatient (CLI) | payer MEDICARE | LOC: M RAD 12:48 | PROVIDERS: ATTEND Specialist | DX: D47.2 Monoclonal gammopathy (principal) ==

== ENCOUNTER → 2022-06-11 | Outpatient (CLI) | payer MEDICARE ==
[~2022-06-11] MED LIST changes: +ISOVUE-370 76% 100ML VIAL As Ordered ONE
== END ==
LOC: M RAD 16:26
PROVIDERS: ATTEND Ophthalmology
DX: H57.12 Ocular pain, left eye (principal)
CPT/HCPCS: 70487; Q9967

== ENCOUNTER → 2022-07-11 | Outpatient (CLI) | payer MEDICARE ==
[~2022-07-11] MED LIST changes: -ISOVUE-370 76% 100ML VIAL As Ordered ONE
== END ==
LOC: M SOG 08:04
PROVIDERS: ATTEND Orthopaedic Surgery
DX: Z53.9 Procedure and treatment not carried out, unspecified reason (principal)

== ENCOUNTER → 2023-01-07 | Outpatient (CLI) | payer MEDICARE ==
[~2023-01-07] MED LIST changes: +PROT1TAB2 PO
== END ==
LOC: M RAD 13:06
PROVIDERS: ATTEND Internal Medicine
DX: R52 Pain, unspecified (principal)

== ENCOUNTER → 2023-01-29 | Outpatient (CLI) | payer MEDICARE | LOC: M RAD 09:50 | PROVIDERS: ATTEND Internal Medicine | DX: R10.11 Right upper quadrant pain (principal) ==

== ENCOUNTER → 2023-06-11 | Outpatient (CLI) | payer MEDICARE | LOC: M RAD 09:25 | PROVIDERS: ATTEND Internal Medicine | DX: R10.13 Epigastric pain (principal) ==

== ENCOUNTER → 2023-06-11 | Outpatient (REF) | payer MEDICARE ==
[2023-06-11 16:11] LABS: BASO % 0.4 % (0.0-1.0); EOS # 0.1 10^3/uL (0.0-0.5); EOS % 0.9 % (0.0-3.0); HEMATOCRIT 35.5 % (42.0-52.0); LYMPH # 0.9 10^3/uL (1.5-5.0); LYMPH % 15.9 % (24.0-44.0); MEAN CORPUSCULAR HEMOGLOBIN 36.6 pg (27.0-33.0); MEAN CORPUSCULAR HGB CONC 33.8 g/dl (32.0-36.5); MEAN CORPUSCULAR VOLUME 108.2 fl (80.0-96.0); MONO # 0.5 10^3/uL (0.0-0.8); MONO % 8.4 % (2.0-8.0); NEUTROPHILS % 74.2 % (36.0-66.0); PLATELET COUNT, AUTOMATED 228 10^3/uL (150-450); RED BLOOD COUNT 3.28 10^6/uL (4.30-6.10); WHITE BLOOD COUNT 5.3 10^3/uL (4.0-10.0)
[2023-06-11 16:33] LABS: LIPASE 31 U/L (12-53)
[2023-06-11 16:36] LABS: ALBUMIN 3.9 G/DL (3.2-5.2); ALKALINE PHOSPHATASE 73 U/L (46-116); ALT/SGPT 17 U/L (7.0-40); AST/SGOT < 8 U/L (<34); BILIRUBIN,TOTAL 0.8 MG/DL (0.3-1.2); BLOOD UREA NITROGEN 18 MG/DL (9-23); CALCIUM LEVEL 8.9 MG/DL (8.3-10.6); CARBON DIOXIDE LEVEL 30 MMOL/L (20-31); CHLORIDE LEVEL 104 MMOL/L (98-107); CREATININE FOR GFR 0.96 MG/DL (0.70-1.30); GLOMERULAR FILTRATION RATE > 60.0 (>42); GLUCOSE, FASTING 105 MG/DL (74-106); POTASSIUM SERUM 4.1 MMOL/L (3.5-5.1); SODIUM LEVEL 137 MMOL/L (136-145); TOTAL PROTEIN 7.6 G/DL (5.7-8.2)
== END ==
LOC: M LAB REF 15:45
PROVIDERS: ATTEND Internal Medicine
DX: E78.00 Pure hypercholesterolemia, unspecified (principal); R10.11 Right upper quadrant pain

== ENCOUNTER → 2024-01-13 | Outpatient (CLI) | payer MEDICARE ==
[~2024-01-13] MED LIST changes: +OMEP-173
== END ==
LOC: M RAD 17:12
PROVIDERS: ATTEND Specialist
DX: D47.2 Monoclonal gammopathy (principal)

== ENCOUNTER → 2024-12-24 | Outpatient (CLI) | payer MEDICARE | LOC: M RAD 10:10 | PROVIDERS: ATTEND Surgery | DX: R10.11 Right upper quadrant pain (principal); K40.90 Unilateral inguinal hernia, without obstruction or gangrene, not specified as recurrent ==

== ENCOUNTER → 2025-02-05 | Outpatient (CLI) | payer MEDICARE | LOC: M SOG 07:37 | PROVIDERS: ATTEND Orthopaedic Surgery | DX: M19.011 Primary osteoarthritis, right shoulder (principal) ==